=== PATIENT | male | born 1965 | race Caucasian/White ===

== ENCOUNTER 2017-01-01 13:28 | Emergency (ER) | payer OTHER ==
[2017-01-01 14:32] VITALS: BP 119/75
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
== END 2017-01-01 15:22 | disposition home or self-care (01) ==
LOC: UCEAST 13:28
DX: Z48.02 Encounter for removal of sutures (principal); F31.9 Bipolar disorder, unspecified; F17.210 Nicotine dependence, cigarettes, uncomplicated; F17.220 Nicotine dependence, chewing tobacco, uncomplicated
CPT/HCPCS: 99211; G0463

== ENCOUNTER 2017-01-12 19:37 | Emergency (ER) | payer OTHER ==
[2017-01-12 20:32] LABS: Hematocrit 40 % (42-52); Hemoglobin 13.3 g/dl (14.0-18.0); Mean Corpuscular HGB Conc 33 g/dl (31-36); Mean Corpuscular Hemoglobin 30 pg (27-31); Mean Corpuscular Volume 91 fL (80-94); Mean Platelet Volume 9 um3 (7.4-10.4); Red Blood Count 4.41 10^6/ul (4.0-5.4); Red Cell Distribution Width 14 % (10.5-15); White Blood Count 6.5 10^3/ul (3.5-10.8)
--- NOTE | 2017-01-12 20:34 | RAD ---
HISTORY: Fall COMPARISONS: March 30, 2006 VIEWS:1: Single frontal portable view of the chest at 8:25 PM FINDINGS: LINES AND TUBES: None. CARDIOMEDIASTINAL SILHOUETTE: The cardiomediastinal silhouette is normal for portable technique. PLEURA: The costophrenic angles are sharp. No pleural abnormalities are noted. LUNG PARENCHYMA: The lungs are clear. ABDOMEN: The upper abdomen is clear. There is no subphrenic gas. BONES AND SOFT TISSUES: No bone or soft tissue abnormalities are noted. IMPRESSION: NO ACTIVE CARDIOPULMONARY DISEASE.
--- NOTE | 2017-01-12 20:49 | RAD ---
HISTORY: Fall, intoxication COMPARISONS: April 01, 2016 TECHNIQUE: Multiple contiguous axial CT scans were obtained of the head without intravenous contrast. FINDINGS: HEMORRHAGE/INFARCT: There is no hemorrhage or acute infarct. MASSES/SHIFT: There is no mass or shift. EXTRA-AXIAL SPACES: There are no extra-axial fluid collections. SULCI AND VENTRICLES: The sulci and ventricles are normal in size and position for the patient's stated age. CEREBRUM: There are no focal parenchymal abnormalities. BRAINSTEM: There are no focal parenchymal abnormalities. CEREBELLUM: There are no focal parenchymal abnormalities. VESSELS: The vessels are grossly normal. PARANASAL SINUSES: The paranasal sinuses are clear. ORBITS: The orbits are unremarkable. BONES AND SOFT TISSUE: No bone or soft tissue abnormalities are noted. OTHER: None IMPRESSION: NO ACUTE INTRACRANIAL PATHOLOGY.
--- NOTE | 2017-01-12 20:49 | RAD ---
HISTORY: Fall, intoxication COMPARISONS: April 01, 2016 TECHNIQUE: Multiple contiguous axial CT scans were obtained of the cervical spine without intravenous contrast, with coronal and sagittal multiplanar reformations. FINDINGS: BRAIN: The visualized brain is unremarkable CENTRAL CANAL: Evaluation of the central canal is limited on CT technique; however, there is no obvious canalicular mass or epidural hemorrhage. ALIGNMENT: There is straightening of the cervical lordosis VERTEBRAL BODIES: There is mild anterolateral marginal osteophyte formation. There is no displaced fracture. JOINTS: There is mild osteoarthritis of the vertebral and facet joints. 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 MUSCULATURE: Unremarkable INTERVERTEBRAL DISCS: There is diffuse loss of intervertebral disc height. AXIAL IMAGES: C2-C3: There is no osseous neural foraminal narrowing or central canal stenosis. C3-C4: There is no osseous neural foraminal narrowing or central canal stenosis. C4-C5: There is no osseous neural foraminal narrowing or central canal stenosis. C5-C6: There is no osseous neural foraminal narrowing or central canal stenosis. C6-C7: There is no osseous neural foraminal narrowing or central canal stenosis. C7-T1: There is no osseous neural foraminal narrowing or central canal stenosis. SOFT TISSUES: The visualized soft tissues of the neck are unremarkable. The prevertebral fat stripe is preserved. OTHER: None. IMPRESSION: MILD DEGENERATIVE CHANGES. NO ACUTE OSSEOUS INJURY TO THE CERVICAL SPINE
[2017-01-12 21:08] LABS: Albumin 4.1 g/dL (3.2-5.2); BUN/Creatinine Ratio 15.9 (8-20); Calcium 8.9 mg/dL (8.6-10.3); EGFR African American 127.4 (>60); EGFR Non-African American 99.1 (>60); Globulin 2.5 g/dL (2-4); Potassium 3.3 mmol/L (3.5-5.0); Total Bilirubin 0.3 mg/dL (0.2-1.0); Total Protein 6.6 g/dL (6.4-8.9)
[2017-01-13 08:44] VITALS: BP 99/61
--- NOTE | 2017-01-13 09:23 | RAD ---
INDICATION: Right thumb injury. TECHNIQUE: 3 views of the right thumb were obtained. FINDINGS: There is mild diffuse soft tissue swelling. The bones are in normal alignment. No fracture is seen. Joint spaces appear maintained. IMPRESSION: SOFT TISSUE SWELLING, NO FRACTURE IS SEEN.
--- NOTE | 2017-01-17 22:43 | ED ---
Chris Chaudhry Erika, scribed for Karl Roberts MD on 01/12/17 at 2024 . Substance Abuse/Use - HPI Summary HPI Summary: Patient is a 51-year-old male presenting to the ED with a CC of alcohol intoxication. As we enter the room, patient states "I thought I was home." When asked about facial laceration, pt states "I don't know what happened." Patient admits to drinking gin tonight, and states the amount "depends" on the day. He denies thoughts of hurting himself. Patient denies any pain. Pt reports he lives in [place]. LEVEL 5 CAVEAT - AMS. - History Of Current Complaint Chief Complaint: EDSubstanceAbuse Stated Complaint: FALL/ETOH Time Seen by Provider: 01/12/17 19:41 Hx Obtained From: Patient Ingestion History: Type/Name Of Drug - EtOH Severity Currently: Moderate Character: Stuporous - Allergies/Home Medications Allergies/Adverse Reactions: Allergies Allergy/AdvReac Type Severity Reaction Status Date / Time Hydroxyzine [From Atarax] Allergy Agitation Verified 08/15/16 11:16 PMH/Surg Hx/FS Hx/Imm Hx Endocrine/Hematology History: Denies: Hx Diabetes, Hx Thyroid Disease Cardiovascular History: Denies: Hx Congestive Heart Failure, Hx Hypertension, Hx Pacemaker/ICD, Other Cardiovascular Problems/Disorders Respiratory History: Denies: Hx Asthma, Hx Chronic Obstructive Pulmonary Disease (COPD), Hx Pulmonary Embolism, Other Respiratory Problems/Disorders GI History: Denies: Hx Ulcer Sensory History: Denies: Hx Hearing Aid Psychiatric History: Reports: Hx Bipolar Disorder - THIS MAY NOT BE ACTUAL DX BUT PT ON MOOD STABILIZERS Denies: Hx Panic Disorder Infectious Disease History: Unable to Obtain/Confirm Infectious Disease History: Denies: Hx Clostridium Difficile, Hx Hepatitis, Hx Human Immunodeficiency Virus (HIV), Hx of Known/Suspected MRSA, Hx Shingles, Hx Tuberculosis, Hx Known/ Suspected VRE, Hx Known/Suspected VRSA, History Other Infectious Disease, Traveled Outside the [place] in Last 30 Days - Family History Known Family History: Positive: Hypertension Negative: Blood Disorder - Social History Alcohol Use: Occasionally Alcohol Amount: drinks "in excess every other day" Substance Use Type: Reports: None Substance Use Comment - Amount & Last Used: prior cocaine use Hx Tobacco Use: No Smoking Status (MU): Current Some Day Smoker Type: Smokeless Tobacco Amount Used/How Often: 1 can weekly. 10 cigarettes weekly Have You Smoked in the Last Year: No Review of Systems - ROS Summary Review of Systems Summary: LEVEL 5 CAVEAT - AMS - INTOXICATED Negative: Arthralgia, Myalgia Skin: Other - laceration to face Neurological: Other - intoxicated All Other Systems Reviewed And Are Negative: No Physical Exam - Summary Physical Exam Summary: Constitutional: Well-developed, Well-nourished, Alert, Cooperative Skin: Warm, Dry. 0.5 cm laceration over the right supraorbital ridge. HENT: Normocephalic; No Racoons eyes; No battles sign; No abrasion; No contusion ; No hemotympanum; No maxilla facial tenderness or instability; Dentition are smooth; No dental trauma; No trismus Eyes: EOMI, PERRL Neck: Trachea is midline. No stridor; No JVD; No step off; No posterior cervical spine tenderness Cardio: Rhythm regular, rate normal Heart sounds normal; Intact distal pulses; The pedal pulses are 2+ and symmetric. Radial pulses are 2+ and symmetric. Pulmonary/Chest wall: Effort normal; Breath sounds normal; Equal chest rise; No flail segment; No rib tenderness; No sternal tenderness Abd: Soft, Appearance normal. No distension; No tenderness; No palpable pulsatile mass; No Cullens sign; No Sharma-Turners sign Musculoskeletal: Full ROM and no tenderness at hips, ankles, shoulders, elbows and knees; No joint swelling; No vertebral body tenderness; No paraspinal tenderness; No step off or deformity of the spine; Pelvis is stable to lateral compression and rock Neuro: Speech is slurred. Triage Information Reviewed: Yes Vital Signs On Initial Exam: Initial Vitals Temp Pulse Resp BP Pulse Ox 98.1 F 67 14 98/52 94 01/12/17 19:47 01/12/17 19:47 01/12/17 19:47 01/12/17 19:47 01/12/17 19:47 Vital Signs Reviewed: Yes Completion Of Physical Exam Limited Due To: Altered Mental Status - Intoxicated , Level 5 - [place] Coma Scale Coma Scale Total: 14 Diagnostics - Vital Signs Vital Signs Temp Pulse Resp BP Pulse Ox 01/12/17 19:52 69 95 01/12/17 19:50 98/52 01/12/17 19:47 98.1 F 67 14 98/52 94 - Laboratory Result Diagrams: 01/12/17 20:25 01/12/17 20:25 Lab Statement: Any lab studies that have been ordered have been reviewed, and results considered in the medical decision making process. - Radiology CXR Radiology Interpretation Completed By: Radiologist - IMPRESSION: NO ACTIVE CARDIOPULMONARY DISEASE. R thumb XR Radiology Interpretation Completed By: ED Physician - No obvious fracture - CT CT C Spine CT Interpretation Completed By: Radiologist - IMPRESSION: MILD DEGENERATIVE CHANGES. NO ACUTE OSSEOUS INJURY TO THE CERVICAL SPINE Brain CT CT Interpretation Completed By: Radiologist - IMPRESSION: NO ACUTE INTRACRANIAL PATHOLOGY. Re-Evaluation - Re-Evaluation First Eval Re-Evaluation Time: 06:25 Comment: Patient's right thumb is swollen and tender over the interphalangeal joint. will XR Course/Dx - Course Assessment/Plan: Will put in a finger splint. - Diagnoses Provider Diagnoses: Alcohol intoxication, Fall, Thumb swelling, Eyebrow laceration Discharge - Discharge Plan Condition: Stable Disposition: HOME Patient Education Materials: Alcohol Intoxication (ED), Laceration (ED) Referrals: Jeffrey Sargent MD [Primary Care Provider] - Margoth Aguila MD [Medical Doctor] - 3 Days (3-5 days) Additional Instructions: RETURN TO THE EMERGENCY DEPARTMENT FOR CHANGING OR WORSENING SYMPTOMS The documentation as recorded by the Chris harris Erika accurately reflects the service I personally performed and the decisions made by , Karl Roberts MD.
== END 2017-01-13 08:29 | disposition home or self-care (01) ==
LOC: ED 19:37
DX: F10.129 Alcohol abuse with intoxication, unspecified (principal); R60.0 Localized edema; S01.119A Laceration without foreign body of unspecified eyelid and periocular area, initial encounter; W19.XXXA Unspecified fall, initial encounter; Y93.9 Activity, unspecified; Y92.9 Unspecified place or not applicable; Y99.9 Unspecified external cause status
CPT/HCPCS: 36415; 70450; 71010; 72125; 80053; 80320; 85025; 99284; G0480

== ENCOUNTER 2017-01-18 23:11 | Emergency (ER) | payer OTHER ==
[2017-01-18] MEDS ORDERED: Ketorolac INJ* 60 MG/2 ML VIAL IM ONE (23:42)
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
[2017-01-19 06:06] VITALS: BP 105/66
== END 2017-01-19 06:09 | disposition home or self-care (01) ==
LOC: ED 23:11
DX: M54.5 Low back pain (principal); F10.129 Alcohol abuse with intoxication, unspecified; Z72.0 Tobacco use
CPT/HCPCS: 36415; 80320; 96372; 99283; G0480; J1885

== ENCOUNTER 2017-01-28 20:02 | Emergency (ER) | payer OTHER ==
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
[2017-01-28 22:21] VITALS: BP 128/53
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
[2017-01-28] MEDS ORDERED: Acetaminophen TAB* 325 MG PO ONE (23:44)
--- NOTE | 2017-01-29 07:55 | RAD ---
INDICATION: Right elbow laceration. TECHNIQUE: 4 views of the right elbow were obtained. FINDINGS: There is focal soft tissue swelling and air in the soft tissues posterior to the olecranon process of the ulna consistent with the patient's history. No fracture or radiopaque foreign body is seen. There is overlying bandage material limiting the study slightly. IMPRESSION: SOFT TISSUE INJURY, NO FRACTURE IS SEEN.
== END 2017-01-29 02:26 | disposition home or self-care (01) ==
LOC: ED 20:02
DX: S01.81XA Laceration without foreign body of other part of head, initial encounter (principal); F10.129 Alcohol abuse with intoxication, unspecified; W22.8XXA Striking against or struck by other objects, initial encounter; Y93.9 Activity, unspecified; Y92.9 Unspecified place or not applicable; Z72.0 Tobacco use
CPT/HCPCS: 12011; 70450; 99282; A9270-GY

== ENCOUNTER 2017-03-15 12:19 | Emergency (ER) | payer OTHER ==
[2017-03-15] MEDS ORDERED: Ibuprofen TAB* 600 MG PO ONE (14:00)
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
--- NOTE | 2017-03-15 14:46 | RAD ---
HISTORY: Left leg pain, trauma COMPARISONS: None VIEWS: 3, Frontal and lateral views of the left foreleg FINDINGS: BONE DENSITY: Normal. BONES: There is no displaced fracture. JOINTS: There is no arthropathy. ALIGNMENT: There is no dislocation. SOFT TISSUES: Unremarkable. OTHER FINDINGS: None. IMPRESSION: NO ACUTE OSSEOUS INJURY. IF SYMPTOMS PERSIST, RECOMMEND REPEAT IMAGING.
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
[2017-03-15 16:19] VITALS: BP 136/83
== END 2017-03-15 15:45 | disposition home or self-care (01) ==
LOC: ED 12:19
DX: S80.02XA Contusion of left knee, initial encounter (principal); M25.562 Pain in left knee; M25.561 Pain in right knee; R21 Rash and other nonspecific skin eruption; Z72.0 Tobacco use; W22.8XXA Striking against or struck by other objects, initial encounter; Y93.9 Activity, unspecified; Y92.9 Unspecified place or not applicable
CPT/HCPCS: 99282; A9270-GY

== ENCOUNTER 2017-03-24 02:27 | Emergency (ER) | payer OTHER ==
[2017-03-24] MEDS ORDERED: LORazepam INJ* 2 MG/ML 1 ML VIAL IM ONE (02:46)
[2017-03-24] MEDS ORDERED: Haloperidol INJ IV/IM* 5 MG/ML AMP IM ONE (02:46)
[2017-03-24] MEDS ORDERED: LORazepam INJ* 2 MG/ML 1 ML VIAL ONE (02:47)
[2017-03-24] MEDS ORDERED: Haloperidol INJ IV/IM* 5 MG/ML AMP ONE (02:48)
[2017-03-24 02:56] LABS: Hematocrit 46 % (42-52); Hemoglobin 15.1 g/dl (14.0-18.0); Mean Corpuscular HGB Conc 33 g/dl (31-36); Mean Corpuscular Hemoglobin 30 pg (27-31); Mean Corpuscular Volume 91 fL (80-94); Mean Platelet Volume 9 um3 (7.4-10.4); Red Cell Distribution Width 14 % (10.5-15); White Blood Count 6.5 10^3/ul (3.5-10.8)
[2017-03-24 03:10] LABS: ALT 15 U/L (7-52); AST 22 U/L (13-39); Albumin 4.3 g/dL (3.2-5.2); Alkaline Phosphatase 67 U/L (34-104); Anion Gap 9 mmol/L (2-11); BUN/Creatinine Ratio 11.4 (8-20); Blood Urea Nitrogen 14 mg/dL (6-24); CO2 Carbon Dioxide 24 mmol/L (22-32); Chloride 108 mmol/L (101-111); EGFR African American 79.8 (>60); Glucose 170 mg/dL (70-100); Potassium 3.8 mmol/L (3.5-5.0); Sodium 141 mmol/L (133-145); Total Protein 7.3 g/dL (6.4-8.9)
[2017-03-24 03:27] LABS: Acetaminophen < 15 mcg/mL; Alcohol 345 mg/dL (<10); Salicylate < 2.50 mg/dL (<30)
[2017-03-24 03:36] LABS: TSH (Thyroid Stimulating Horm) 1.32 mcIU/mL (0.34-5.60)
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
[2017-03-24 16:52] LABS: Urine Bacteria Absent (Absent); Urine Bilirubin Negative (Negative); Urine Glucose Negative (Negative); Urine Nitrite Negative (Negative)
[2017-03-24 17:14] LABS: Benzodiazepine Urine Screen None Detected (None Detect)
[2017-03-24 18:55] VITALS: BP 133/74
--- NOTE | 2017-03-25 04:40 | ED ---
Lashonda Chaudhry Rebecca, scribed for Dave Huang MD on 03/24/17 at 2017 . Progress - Progress Note Progress Note: Pt was signed out. Mental health evaluation done by Dr. López, psychiatrist, who believes that the pt is safe to go home and is currently stable. Pt will be D/C to home with Dx of substance abuse and acute alcohol intoxication. - Consult/PCP Time Called: 19:45 Course/Dx - Diagnoses Provider Diagnoses: Acute alcohol intoxication, Substance abuse The documentation as recorded by the Lashonda harris Rebecca accurately reflects the service I personally performed and the decisions made by Reina carlton Drew, MD.
== END 2017-03-24 20:25 ==
LOC: ED 02:27
DX: F10.129 Alcohol abuse with intoxication, unspecified (principal); F19.10 Other psychoactive substance abuse, uncomplicated
CPT/HCPCS: 36415; 80053; 80307; 80320; 80329; 81003; 81015; 84443; 85025; 96374; 96375; 99283; G0480; J1630; J2060

== ENCOUNTER 2017-05-17 12:33 | Emergency (ER) | payer OTHER ==
[2017-05-17 12:40] VITALS: BP 127/83
[2017-05-17] MEDS ORDERED: Lidocaine 1% MPF* 2 ML VIAL INJ ONE (12:56)
[2017-05-17] MEDS ORDERED: Lidocaine 1% MPF* 2 ML VIAL ONE (12:58)
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
[2017-05-17] MEDS ORDERED: HYDROcodone/ACETAMIN 5-325 MG* 1 TAB PO ONE (13:12)
[2017-05-17] MEDS ORDERED: Ibuprofen TAB* 600 MG PO ONE (13:12)
--- NOTE | 2017-05-17 21:05 | UC ---
Progress - Progress Note Progress Note: Lab result showed MRSA in wound culture. Bactrim called into pt pharmacy, please call and inform him of this so he can start the prescription as soon as possible.
== END 2017-05-17 13:35 | disposition home or self-care (01) ==
LOC: UCEAST 12:33
DX: L02.213 Cutaneous abscess of chest wall (principal); L03.313 Cellulitis of chest wall; F17.210 Nicotine dependence, cigarettes, uncomplicated
CPT/HCPCS: 87070; 87077; 87186; 87205; 87640; 87641; 99212; A9270-GY; G0463

== ENCOUNTER 2017-06-11 21:07 | Emergency (ER) | payer OTHER ==
[2017-06-11 22:03] LABS: Hematocrit 45 % (42-52); Hemoglobin 15.2 g/dl (14.0-18.0); Mean Corpuscular HGB Conc 34 g/dl (31-36); Mean Corpuscular Hemoglobin 31 pg (27-31); Mean Corpuscular Volume 92 fL (80-94); Mean Platelet Volume 8 um3 (7.4-10.4); Red Blood Count 4.93 10^6/ul (4.0-5.4); Red Cell Distribution Width 13 % (10.5-15); White Blood Count 4.9 10^3/ul (3.5-10.8)
[2017-06-11 22:19] LABS: Urine Bilirubin Negative (Negative); Urine Glucose Negative (Negative); Urine Nitrite Negative (Negative)
[2017-06-11 22:20] LABS: ALT 14 U/L (7-52); AST 21 U/L (13-39); Albumin 4.6 g/dL (3.2-5.2); Alkaline Phosphatase 86 U/L (34-104); Anion Gap 3 mmol/L (2-11); Blood Urea Nitrogen 9 mg/dL (6-24); CO2 Carbon Dioxide 31 mmol/L (22-32); Calcium 9.3 mg/dL (8.6-10.3); Chloride 107 mmol/L (101-111); EGFR African American 114.4 (>60); Globulin 3.4 g/dL (2-4); Glucose 96 mg/dL (70-100); Potassium 3.9 mmol/L (3.5-5.0); Sodium 141 mmol/L (133-145)
--- NOTE | 2017-06-11 22:20 | RAD ---
Indication: Right-sided chest pain. 2 views of the chest demonstrates no mediastinal shift. Heart is of normal size and configuration. Lungs are clear. When compared to January 12, 2017 no significant change is noted. IMPRESSION: No active cardiopulmonary disease is noted.
[2017-06-11 22:31] LABS: Acetaminophen < 15 mcg/mL; Alcohol 358 mg/dL (<10); Salicylate < 2.50 mg/dL (<30)
[2017-06-11 22:32] LABS: Benzodiazepine Urine Screen None Detected (None Detect)
[2017-06-11 22:41] LABS: TSH (Thyroid Stimulating Horm) 2.95 mcIU/mL (0.34-5.60)
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
[2017-06-12 06:18] VITALS: BP 126/71
== END 2017-06-12 06:17 | disposition home or self-care (01) ==
LOC: ED 21:07
DX: F10.129 Alcohol abuse with intoxication, unspecified (principal); F17.210 Nicotine dependence, cigarettes, uncomplicated; R07.81 Pleurodynia
CPT/HCPCS: 36415; 71020; 80053; 80307; 80320; 80329; 81003; 84443; 84484; 85025; 99284; G0480

== ENCOUNTER 2017-06-13 18:03 | Inpatient (IN) | payer MEDICAID, OTHER ==
[2017-06-13 19:02] LABS: Urine Bilirubin Negative (Negative); Urine Glucose Negative (Negative); Urine Nitrite Negative (Negative)
[2017-06-13 19:18] LABS: Hematocrit 43 % (42-52); Hemoglobin 14.4 g/dl (14.0-18.0); Mean Corpuscular HGB Conc 34 g/dl (31-36); Mean Corpuscular Hemoglobin 31 pg (27-31); Mean Corpuscular Volume 91 fL (80-94); Mean Platelet Volume 8 um3 (7.4-10.4); Red Blood Count 4.68 10^6/ul (4.0-5.4); Red Cell Distribution Width 14 % (10.5-15); White Blood Count 8.2 10^3/ul (3.5-10.8)
[2017-06-13 19:20] LABS: Benzodiazepine Urine Screen None Detected (None Detect)
[2017-06-13 19:33] LABS: ALT 11 U/L (7-52); AST 18 U/L (13-39); Albumin 4.3 g/dL (3.2-5.2); Alkaline Phosphatase 76 U/L (34-104); Anion Gap 8 mmol/L (2-11); Blood Urea Nitrogen 10 mg/dL (6-24); CO2 Carbon Dioxide 26 mmol/L (22-32); Calcium 9.4 mg/dL (8.6-10.3); Chloride 107 mmol/L (101-111); EGFR Non-African American 87.8 (>60); Globulin 3.2 g/dL (2-4); Glucose 98 mg/dL (70-100); Potassium 3.6 mmol/L (3.5-5.0); Sodium 141 mmol/L (133-145); Total Protein 7.5 g/dL (6.4-8.9)
[2017-06-13] MEDS ORDERED: diPHENhydraMINE IV* 50 MG/ML 1 ml VIAL (BENADRYL) IM ONE ×2 (19:44→21:34)
[2017-06-13] MEDS ORDERED: LORazepam INJ* 2 MG/ML 1 ML VIAL IM ONE ×2 (19:44→22:00)
[2017-06-13] MEDS ORDERED: Haloperidol INJ IV/IM* 5 MG/ML AMP IM ONE ×2 (19:44→21:33)
[2017-06-13 19:48] LABS: Acetaminophen < 15 mcg/mL; Alcohol 223 mg/dL (<10); Salicylate < 2.50 mg/dL (<30)
[2017-06-13 20:42] LABS: TSH (Thyroid Stimulating Horm) 1.94 mcIU/mL (0.34-5.60)
[2017-06-13] MEDS ORDERED: LORazepam INJ* 2 MG/ML 1 ML VIAL IV PUSH ONE (22:00)
--- NOTE | 2017-06-14 06:48 | ED ---
Lashonda Chaudhry Rebecca, scribed for Bhanu Cooper on 06/14/17 at 0644 . Progress - Progress Note Progress Note: Pt was signed out from Dr. Smith, pending disposition, awaiting MHE clearance and completion and EtOH metabolism. Course/Dx - Course Course Of Treatment: Pt required sedation 2x in the ED. He is medically cleared at 0643. Pt will be signed out, pending disposition, awaiting MHE completion. - Diagnoses Provider Diagnoses: Depression The documentation as recorded by the Lashonda harris Rebecca accurately reflects the service I personally performed and the decisions made by Allison carlton Emmanuel.
[2017-06-14] MEDS ORDERED: Al Hydrox/Mg Hydrox/Simet LIQ* 30 ML UDC PO PRN (09:15)
[2017-06-14] MEDS ORDERED: Nicotine GUM* 2 MG PO PRN (09:15)
[2017-06-14] MEDS: chlordiazePOXIDE CAP* 25 MG PO SCH ×3 (11:34→20:59)
[2017-06-14] MEDS: Sertraline* 50 MG TAB PO SCH (11:34)
[2017-06-14] MEDS ORDERED: Thiamine IV* 100 MG/ML 2 ML VIAL IM ONE (11:36)
[2017-06-14] MEDS: Folic Acid TAB* 1 MG PO SCH (12:12)
[2017-06-14] MEDS: Gabapentin CAP(*) 300 MG PO SCH ×2 (14:27→20:59)
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
[2017-06-15] MEDS: Vitamin THERAPEUTIC TAB PO SCH (07:47)
[2017-06-15] MEDS: Thiamine TAB* 100 MG TAB PO SCH (07:47)
[2017-06-15] MEDS: Folic Acid TAB* 1 MG PO SCH (07:47)
[2017-06-15] MEDS: chlordiazePOXIDE CAP* 25 MG PO SCH (07:47)
[2017-06-15] MEDS: Gabapentin CAP(*) 300 MG PO SCH ×3 (07:47→20:18)
[2017-06-15] MEDS: Sertraline* 50 MG TAB PO SCH (07:48)
--- NOTE | 2017-06-15 11:39 | PN ---
MHU: Group Therapy Note - Service Type Service Type: 60768 Group Psychotherapy - Cognitive Behavioral Group Therapy ( CBT):Patient was attentive and participatory in CBT programming this morning, and remained in good behavioral control. Patient expressed positive insights regarding relevant treatment interventions and goals.
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
[2017-06-15] MEDS: Nicotine Lozenge* 4 MG LOZENGE MT PRN ×2 (17:39→21:09)
[2017-06-15] MEDS ORDERED: chlordiazePOXIDE CAP* 25 MG PO SCH (21:00)
[2017-06-15] MEDS: Haloperidol TAB* 5 MG PO PRN (22:21)
[2017-06-15] MEDS: Ibuprofen TAB* 600 MG PO PRN (22:22)
[2017-06-16] MEDS: Nicotine Lozenge* 4 MG LOZENGE MT PRN ×3 (01:35→16:01)
[2017-06-16] MEDS: Gabapentin CAP(*) 300 MG PO SCH ×3 (08:27→20:59)
[2017-06-16] MEDS: Sertraline* 50 MG TAB PO SCH (08:28)
[2017-06-16] MEDS: Vitamin THERAPEUTIC TAB PO SCH (08:28)
[2017-06-16] MEDS: Thiamine TAB* 100 MG TAB PO SCH (08:28)
[2017-06-16] MEDS: Folic Acid TAB* 1 MG PO SCH (08:28)
[2017-06-16] MEDS ORDERED: chlordiazePOXIDE CAP* 25 MG PO ONE (09:00)
--- NOTE | 2017-06-16 16:27 | PN ---
<YefriHailey - Last Filed: 06/16/17 17:26> Subjective - Subjective Subjective: I woke up patient. He is pleasant, alert and oriented x3. Mood euthymic, affect full.Denies suicidal ideation or psychotic thoughts. He is hoping to go directly to rehab from here. Is relieved that someone is taking care of his dog. Reports he is getting others on the unit to play board games. Objective - Appearance Dysmorphic Features: No Hygiene: Normal Grooming: Fairly Well Kept - Behavior Psychomotor Activities: Normal Exhibits Abnormal Movement: No - Attitude and Relatedness Attitude and Relatedness: Cooperative Eye Contact: Good - Speech Quality: Unpressured Latencies: Normal Quantity: Appropriate - Mood Patient's Decription of Mood: "Good" - Affect Observed Affect: Good Affect Consistent with: Euthymia - Thought Process Patient's Thought Process: Coherent Thought Content: No Passive Wish, No Suicidal Planning, No Homicidal Ideation, No Paranoid Ideation - Sensorium Experiencing Hallucinations: No, Sensorium is Clear - Level of Consciousness Level of Consciousness: Alert Orientation: Yes Intact, Yes Orientated to Time, Yes Orientated to Place, Yes Orientated to Person - Impulse Control Impulse Control: Intact - Insight and Judgement Insight and Judgement: Good - Group Participation Particating in Group Activities: Yes - Medication Management Medication Management Adherence: Yes Assessment - Assessment Merits Inpatient Hospitalization: For Stabilization Inpatient DSM-IV Dx: I: alcohol use d/o; PTSD; tobacco use d/o. II: deferred. III: back pain. IV: stressors r/t legal involvement, financial strain and sequela of alcohol use. 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 Cooperative, participating in groups and leading others to play board games. Hopeful that he will go into rehab directly from here. Plan - Plan Treatment Plan: Name: EMMY AQUINO Birthdate: 1965 [id number] Medications: Current Medications Al Hydrox/Mg Hydrox/Simethicone (Maalox Plus*) 30 ml PO Q4H PRN PRN Reason: INDIGESTION Folic Acid (Folvite Tab*) 1 mg PO DAILY [facility] Last Admin: 06/16/17 08:28 Dose: 1 mg Gabapentin (Neurontin Cap(*)) 900 mg PO TID [facility] Last Admin: 06/16/17 15:19 Dose: 900 mg Haloperidol (Haldol Tab*) 5 mg PO Q6H PRN PRN Reason: AGITATION/ANXIETY/INSOMNIA Last Admin: 06/15/17 22:21 Dose: 5 mg Ibuprofen (Motrin Tab*) 600 mg PO Q6H PRN PRN Reason: PAIN Last Admin: 06/15/17 22:22 Dose: 600 mg Multivitamins (Theragran Tab*) 1 tab PO DAILY [facility] Last Admin: 06/16/17 08:28 Dose: 1 tab Nicotine (Nicotine Inhaler*) 10 mg INH Q2H PRN PRN Reason: CRAVING Nicotine Polacrilex (Nicotine Lozenge*) 4 mg MT Q2H PRN PRN Reason: CRAVINGS Last Admin: 06/16/17 16:01 Dose: 4 mg Sertraline HCl (Zoloft*) 100 mg PO DAILY [facility] Last Admin: 06/16/17 08:28 Dose: 100 mg Thiamine HCl (Vitamin B-1 Tab*) 200 mg PO DAILY [facility] Last Admin: 06/16/17 08:28 Dose: 200 mg - Discharge Plan Discharge Plan: Drug/Alcohol Rehab <Romulo Elias - Last Filed: 06/17/17 18:15> Subjective - Subjective Subjective: Reviewed this note written by student psychiatric nurse practitioner, Hailey Asif, and approved it after discussion with her. Plan - Plan Treatment Plan: Name: EMMY AQUINO Birthdate: 1965 [id number] Medications: Current Medications Al Hydrox/Mg Hydrox/Simethicone (Maalox Plus*) 30 ml PO Q4H PRN PRN Reason: INDIGESTION Folic Acid (Folvite Tab*) 1 mg PO DAILY [facility] Last Admin: 06/17/17 08:31 Dose: 1 mg Gabapentin (Neurontin Cap(*)) 900 mg PO TID [facility] Last Admin: 06/17/17 13:36 Dose: 900 mg Haloperidol (Haldol Tab*) 5 mg PO Q6H PRN PRN Reason: AGITATION/ANXIETY/INSOMNIA Last Admin: 06/17/17 16:48 Dose: 5 mg Ibuprofen (Motrin Tab*) 600 mg PO Q6H PRN PRN Reason: PAIN Last Admin: 06/16/17 22:14 Dose: 600 mg Multivitamins (Theragran Tab*) 1 tab PO DAILY [facility] Last Admin: 06/17/17 08:31 Dose: 1 tab Nicotine (Nicotine Inhaler*) 10 mg INH Q2H PRN PRN Reason: CRAVING Last Admin: 06/17/17 13:37 Dose: 10 mg Nicotine Polacrilex (Nicotine Lozenge*) 4 mg MT Q2H PRN PRN Reason: CRAVINGS Last Admin: 06/17/17 17:32 Dose: 4 mg Sertraline HCl (Zoloft*) 100 mg PO DAILY [facility] Last Admin: 06/17/17 08:31 Dose: 100 mg Thiamine HCl (Vitamin B-1 Tab*) 200 mg PO DAILY [facility] Last Admin: 06/17/17 08:32 Dose: 200 mg Trazodone HCl (Desyrel Tab*) 50 mg PO BEDTIME PRN PRN Reason: FOR COMPLAINTS OF INSOMNIA Last Admin: 06/17/17 00:00 Dose: 50 mg
--- NOTE | 2017-06-16 21:16 | PN ---
Progress Note - Progress Note Date of Service: 06/14/17 SOAP: Subjective: [] Objective: [] Assessment: [] Plan: []The patient was signed out to me by Dr. Cooper. He is admitted to the psych unit for depression.
[2017-06-16] MEDS: Ibuprofen TAB* 600 MG PO PRN (22:14)
--- NOTE | 2017-06-16 22:16 | ED ---
Lindsay Chaudhry Alfonso, scribed for Shailesh Smith MD on 06/13/17 at 1910 . Psychiatric Complaint - HPI Summary HPI Summary: This patient is a 51 year old M BIBA to [facility] with a chief complaint of hearing voices since two days ago. The patient rates the pain 0/10 in severity. Symptoms aggravated by nothing. Symptoms alleviated by nothing. Patient reports ETOH use, paranoia, and HI ("I was looking to kill someone - I was looking to fight"). Patient denies SI. Medications reviewed. Patient medically cleared for [facility] at 0115. - History Of Current Complaint Chief Complaint: EDMentalHealth Time Seen by Provider: 06/13/17 19:06 Hx Obtained From: Patient Onset/Duration: Sudden Onset, Lasting Days - 2, Still Present Timing: Constant Severity Initially: Moderate Severity Currently: Moderate Aggravating Factor(s): Nothing Alleviating Factor(s): Nothing Associated Signs And Symptoms: Positive: Hallucinating - Hearing voices Related History: Positive For: Prior Psychiatric Issues Has Homicidal: Reports: Thoughts - Allergies/Home Medications Allergies/Adverse Reactions: Allergies Allergy/AdvReac Type Severity Reaction Status Date / Time Hydroxyzine [From Atarax] AdvReac Agitation Verified 05/17/17 12:40 Home Medications: Home Medications Gabapentin 600 mg PO DAILY 06/14/17 [History Confirmed 06/14/17] Ibuprofen TAB* [Motrin TAB* 600 MG] 600 mg PO DAILY 06/14/17 [History Confirmed 06/14/17] PMH/Surg Hx/FS Hx/Imm Hx Endocrine/Hematology History: Denies: Hx Diabetes, Hx Thyroid Disease Cardiovascular History: Denies: Hx Congestive Heart Failure, Hx Hypertension, Hx Pacemaker/ICD, Other Cardiovascular Problems/Disorders Respiratory History: Denies: Hx Asthma, Hx Chronic Obstructive Pulmonary Disease (COPD), Hx Pulmonary Embolism, Other Respiratory Problems/Disorders GI History: Denies: Hx Ulcer Sensory History: Denies: Hx Hearing Aid Psychiatric History: Reports: Hx Post Traumatic Stress Disorder, Hx Bipolar Disorder - THIS MAY NOT BE ACTUAL DX BUT PT ON MOOD STABILIZERS, Hx Substance Abuse - ETOH Denies: Hx Eating Disorder, Hx Panic Disorder - Surgical History Surgery Procedure, Year, and Place: Throat, face reconstruction - Immunization History Date of Tetanus Vaccine: unk Date of Influenza Vaccine: unk Infectious Disease History: No Infectious Disease History: Denies: Hx Clostridium Difficile, Hx Hepatitis, Hx Human Immunodeficiency Virus (HIV), Hx of Known/Suspected MRSA, Hx Shingles, Hx Tuberculosis, Hx Known/ Suspected VRE, Hx Known/Suspected VRSA, History Other Infectious Disease, Traveled Outside the [place] in Last 30 Days - Family History Known Family History: Positive: Hypertension Negative: Blood Disorder - Social History Alcohol Use: Daily Alcohol Amount: drinks "in excess every other day" Hx Substance Use: Yes Substance Use Type: Reports: Cocaine Substance Use Comment - Amount & Last Used: cocaine use Hx Tobacco Use: No Smoking Status (MU): Heavy Every Day Tobacco Smoker Type: Cigarettes Amount Used/How Often: 1/2 ppd Length of Time of Smoking/Using Tobacco: since age 15 Have You Smoked in the Last Year: Yes Review of Systems Constitutional: Negative Positive: Other - hearing voices ETOH use, paranoia, and HI ("I was looking to kill someone - I was looking to fight"); negative SI. All Other Systems Reviewed And Are Negative: Yes Physical Exam Triage Information Reviewed: Yes Vital Signs On Initial Exam: Initial Vitals Temp Pulse Resp BP Pulse Ox 98.0 F 79 16 138/83 100 06/13/17 18:26 06/13/17 18:26 06/13/17 18:26 06/13/17 18:26 06/13/17 18:26 Vital Signs Reviewed: Yes Appearance: Positive: Well-Appearing, No Pain Distress Skin: Positive: Warm, Skin Color Reflects Adequate Perfusion, Dry Head/Face: Positive: Normal Head/Face Inspection Eyes: Positive: EOMI, PAULO ENT: Positive: Normal ENT inspection Neck: Positive: Supple, Nontender Respiratory/Lung Sounds: Positive: Clear to Auscultation, Breath Sounds Present Cardiovascular: Positive: RRR Abdomen Description: Positive: Nontender, Soft Bowel Sounds: Positive: Present Musculoskeletal: Positive: Normal, Strength/ROM Intact Neurological: Positive: Normal, Sensory/Motor Intact, Alert, Oriented to Person Place, Time Psychiatric: Positive: Affect/Mood Appropriate Diagnostics - Vital Signs Vital Signs Temp Pulse Resp BP Pulse Ox 06/13/17 18:26 98.0 F 79 16 138/83 100 - Laboratory Lab Results: Lab Results 06/13/17 Range/Units 18:45 Urine Color Colorless Urine Appearance Clear Urine pH 6.0 (5-9) Ur Specific [place] 1.001 L (1.010-1.030) Urine Protein Negative (Negative) Urine Ketones Negative (Negative) Urine Blood Negative (Negative) Urine Nitrate Negative (Negative) Urine Bilirubin Negative (Negative) Urine Urobilinogen Negative (Negative) Ur Leukocyte Esterase Negative (Negative) Urine Glucose Negative (Negative) Result Diagrams: 06/13/17 19:08 06/13/17 19:08 Lab Statement: Any lab studies that have been ordered have been reviewed, and results considered in the medical decision making process. Course/Dx - Differential Dx/Clinical Impression Provider Diagnosis: Depression Discharge - Discharge Plan Condition: Stable Disposition: PSY[facility]IATRIC FACILITY-[facility] The documentation as recorded by the Lindsay harris Alfonso accurately reflects the service I personally performed and the decisions made by , Shailesh Smith MD.
[2017-06-17] MEDS: Vitamin THERAPEUTIC TAB PO SCH (08:31)
[2017-06-17] MEDS: Sertraline* 50 MG TAB PO SCH (08:31)
[2017-06-17] MEDS: Folic Acid TAB* 1 MG PO SCH (08:31)
[2017-06-17] MEDS: Gabapentin CAP(*) 300 MG PO SCH ×3 (08:31→20:27)
[2017-06-17] MEDS: Thiamine TAB* 100 MG TAB PO SCH (08:32)
[2017-06-17] MEDS: Nicotine Lozenge* 4 MG LOZENGE MT PRN ×4 (11:46→20:29)
[2017-06-17] MEDS: Nicotine Inhaler* 10 MG AMP INH PRN ×2 (11:47→13:37)
[2017-06-17] MEDS ORDERED: Mouth Piece, Nicotine* 1 EACH CARTRIDGE ONE (11:48)
[2017-06-17] MEDS: Haloperidol TAB* 5 MG PO PRN (16:48)
[2017-06-17] MEDS: traZODone TAB* 50 MG TAB PO PRN ×2 (20:29)
[2017-06-18] MEDS: Nicotine Lozenge* 4 MG LOZENGE MT PRN ×5 (07:05→23:48)
[2017-06-18] MEDS: Folic Acid TAB* 1 MG PO SCH (10:56)
[2017-06-18] MEDS: Gabapentin CAP(*) 300 MG PO SCH ×3 (10:56→20:21)
[2017-06-18] MEDS: Sertraline* 50 MG TAB PO SCH (10:57)
[2017-06-18] MEDS: Vitamin THERAPEUTIC TAB PO SCH (10:57)
[2017-06-18] MEDS: Thiamine TAB* 100 MG TAB PO SCH (10:59)
--- NOTE | 2017-06-18 14:08 | PN ---
Subjective - Subjective Service Type: 78944 Hosp care 15 min low complexity Subjective: Patient calm, very polite. Denies SI. States he would like to go to rehab at [place], [place] or [facility], as they have [facility] programs. No complaints. Objective - Appearance Appearance: Well Developed/Nourished Dysmorphic Features: No Hygiene: Normal Grooming: Well Kept - Behavior Psychomotor Activities: Normal Exhibits Abnormal Movement: No - Attitude and Relatedness Attitude and Relatedness: Cooperative Eye Contact: Good - Speech Quality: Unpressured Latencies: Normal Quantity: Appropriate - Mood Patient's Decription of Mood: "Good" - Affect Observed Affect: Good Affect Consistent with: Euthymia - Thought Process Patient's Thought Process: Coherent Thought Content: No Passive Wish, No Suicidal Planning, No Homicidal Ideation, No Paranoid Ideation - Sensorium Experiencing Hallucinations: No, Sensorium is Clear Type of Hallucinations: Visual: No, Auditory: No, Command: No - Level of Consciousness Level of Consciousness: Alert Orientation: Yes Intact, Yes Orientated to Time, Yes Orientated to Place, Yes Orientated to Person - Impulse Control Impulse Control: Intact - Insight and Judgement Insight and Judgement: Good - Group Participation Particating in Group Activities: Yes - Medication Management Medication Management Adherence: Yes Assessment - Assessment Merits Inpatient Hospitalization: Consolidate Improvements, Pending Safe DC Plan Inpatient DSM-IV Dx: I: alcohol use d/o; PTSD; tobacco use d/o. II: deferred. III: back pain. IV: stressors r/t legal involvement, financial strain and sequela of alcohol use. V: 55 Clinical Impression: 51 y.o. white male with a history of alcohol dependence admitted for SI. Plan - Plan Treatment Plan: Name: EMMY AQUINO Birthdate: 1965 [id number] Patient awaits inpatient alcohol rehab. No evidence of withdrawal symptoms. Await placement. Medications: Current Medications Al Hydrox/Mg Hydrox/Simethicone (Maalox Plus*) 30 ml PO Q4H PRN PRN Reason: INDIGESTION Folic Acid (Folvite Tab*) 1 mg PO DAILY [facility] Last Admin: 06/18/17 10:56 Dose: 1 mg Gabapentin (Neurontin Cap(*)) 900 mg PO TID [facility] Last Admin: 06/18/17 10:56 Dose: 900 mg Haloperidol (Haldol Tab*) 5 mg PO Q6H PRN PRN Reason: AGITATION/ANXIETY/INSOMNIA Last Admin: 06/17/17 16:48 Dose: 5 mg Ibuprofen (Motrin Tab*) 600 mg PO Q6H PRN PRN Reason: PAIN Last Admin: 06/16/17 22:14 Dose: 600 mg Influenza Virus Vaccine (Fluarix *Quad* 201718*) 0.5 ml IM .ONCE ONE Stop: 06/30/17 09:01 Multivitamins (Theragran Tab*) 1 tab PO DAILY [facility] Last Admin: 06/18/17 10:57 Dose: 1 tab Nicotine (Nicotine Inhaler*) 10 mg INH Q2H PRN PRN Reason: CRAVING Last Admin: 06/17/17 13:37 Dose: 10 mg Nicotine Polacrilex (Nicotine Lozenge*) 4 mg MT Q2H PRN PRN Reason: CRAVINGS Last Admin: 06/18/17 12:31 Dose: 4 mg Sertraline HCl (Zoloft*) 100 mg PO DAILY [facility] Last Admin: 06/18/17 10:57 Dose: 100 mg Thiamine HCl (Vitamin B-1 Tab*) 200 mg PO DAILY [facility] Last Admin: 06/18/17 10:59 Dose: 200 mg Trazodone HCl (Desyrel Tab*) 50 mg PO BEDTIME PRN PRN Reason: FOR COMPLAINTS OF INSOMNIA Last Admin: 06/17/17 20:29 Dose: 50 mg - Discharge Plan Discharge Plan: Drug/Alcohol Rehab
[2017-06-18] MEDS ORDERED: Influenza VAC *QUAD* 2017-18* 0.5 ML SYRINGE IM ONE (16:30)
[2017-06-18] MEDS: Nicotine Inhaler* 10 MG AMP INH PRN (16:56)
[2017-06-18] MEDS: traZODone TAB* 50 MG TAB PO PRN (20:22)
[2017-06-18] MEDS: Ibuprofen TAB* 600 MG PO PRN (23:27)
[2017-06-19] MEDS: Nicotine Lozenge* 4 MG LOZENGE MT PRN ×5 (06:55→22:31)
[2017-06-19] MEDS: Gabapentin CAP(*) 300 MG PO SCH ×3 (10:05→19:57)
[2017-06-19] MEDS: Folic Acid TAB* 1 MG PO SCH (10:07)
[2017-06-19] MEDS: Vitamin THERAPEUTIC TAB PO SCH (10:08)
[2017-06-19] MEDS: Sertraline* 50 MG TAB PO SCH (10:08)
[2017-06-19] MEDS: Thiamine TAB* 100 MG TAB PO SCH (10:08)
--- NOTE | 2017-06-19 11:44 | PN ---
MHU: Group Therapy Note - Service Type Service Type: 67514 Group Psychotherapy - Cognitive Behavioral Group Therapy ( CBT):Patient was attentive and participatory in CBT programming this morning, and remained in good behavioral control. Patient expressed positive insights regarding relevant treatment interventions and goals.
[2017-06-19] MEDS ORDERED: traZODone TAB* 100 MG PO PRN (13:20)
--- NOTE | 2017-06-19 13:26 | PN ---
Subjective - Subjective Service Type: 72167 Hosp care 15 min low complexity Subjective: Patient reports improved mood and denies urges or cravings for alcohol. He is eager to be accepted to a [facility] inpatient facility. He reports improved sleep with the exception of waking with sciatic pain radiating from right gluteus. He denies SI/HI/. He is noted to be interactive and jovial with staff and peers. Objective - Appearance Appearance: Well Developed/Nourished Dysmorphic Features: No Hygiene: Normal Grooming: Well Kept - Behavior Psychomotor Activities: Normal Exhibits Abnormal Movement: No - Attitude and Relatedness Attitude and Relatedness: Cooperative Eye Contact: Good - Speech Quality: Unpressured Latencies: Normal Quantity: Appropriate - Mood Patient's Decription of Mood: "Great" - Affect Observed Affect: Good Affect Consistent with: Euthymia - Thought Process Patient's Thought Process: Coherent, Goal Directed Thought Content: No Passive Wish, No Suicidal Planning, No Homicidal Ideation, No Paranoid Ideation - Sensorium Experiencing Hallucinations: No, Sensorium is Clear Type of Hallucinations: Visual: No, Auditory: No, Command: No - Level of Consciousness Level of Consciousness: Alert Orientation: Yes Intact, Yes Orientated to Time, Yes Orientated to Place, Yes Orientated to Person - Impulse Control Impulse Control: Tenuous - Insight and Judgement Insight and Judgement: Good - Group Participation Particating in Group Activities: Yes - Medication Management Medication Management Adherence: Yes Assessment - Assessment Merits Inpatient Hospitalization: For Stabilization, For Ongoing Evaluation, For Discharge Planning Inpatient DSM-IV Dx: I: alcohol use d/o; PTSD; tobacco use d/o. II: deferred. III: back pain. IV: stressors r/t legal involvement, financial strain and sequela of alcohol use. V: 55 Clinical Impression: Patient is a 51yo male with significant trauma and alcohol abuse history. He is awaiting inpatient substance use facility acceptance. Plan - Plan Treatment Plan: Name: EMMY AQUINO Birthdate: 1965 [id number] Increase trazodone for sleep. May have one time dose of flexeril for sciatic pain. Continue intensive acute inpatient psychiatric treatment. Discharge planning to include outpatient providers and referrals to substance use treatment. Continued Medication Management: Different Medication Medications: Current Medications Al Hydrox/Mg Hydrox/Simethicone (Maalox Plus*) 30 ml PO Q4H PRN PRN Reason: INDIGESTION Cyclobenzaprine HCl (Flexeril Tab*) 10 mg PO ONCE ONE Stop: 06/19/17 21:01 Folic Acid (Folvite Tab*) 1 mg PO DAILY [facility] Last Admin: 06/19/17 10:07 Dose: 1 mg Gabapentin (Neurontin Cap(*)) 900 mg PO TID [facility] Last Admin: 06/19/17 10:05 Dose: 900 mg Ibuprofen (Motrin Tab*) 600 mg PO Q6H PRN PRN Reason: PAIN Last Admin: 06/18/17 23:27 Dose: 600 mg Multivitamins (Theragran Tab*) 1 tab PO DAILY [facility] Last Admin: 06/19/17 10:08 Dose: 1 tab Nicotine (Nicotine Inhaler*) 10 mg INH Q2H PRN PRN Reason: CRAVING Last Admin: 06/18/17 16:56 Dose: 10 mg Nicotine Polacrilex (Nicotine Lozenge*) 4 mg MT Q2H PRN PRN Reason: CRAVINGS Last Admin: 06/19/17 12:27 Dose: 4 mg Sertraline HCl (Zoloft*) 100 mg PO DAILY [facility] Last Admin: 06/19/17 10:08 Dose: 100 mg Thiamine HCl (Vitamin B-1 Tab*) 200 mg PO DAILY [facility] Last Admin: 06/19/17 10:08 Dose: 200 mg Trazodone HCl (Desyrel Tab*) 100 mg PO BEDTIME PRN PRN Reason: FOR COMPLAINTS OF INSOMNIA - Discharge Plan Discharge Plan: Drug/Alcohol Rehab
[2017-06-19] MEDS ORDERED: Cyclobenzaprine TAB* 10 MG PO ONE (21:00)
[2017-06-20] MEDS: Ibuprofen TAB* 600 MG PO PRN (05:26)
[2017-06-20] MEDS: Nicotine Lozenge* 4 MG LOZENGE MT PRN ×4 (05:26→22:59)
[2017-06-20] MEDS: Vitamin THERAPEUTIC TAB PO SCH (08:42)
[2017-06-20] MEDS: Sertraline* 50 MG TAB PO SCH (08:42)
[2017-06-20] MEDS: Gabapentin CAP(*) 300 MG PO SCH ×3 (08:42→21:16)
[2017-06-20] MEDS: Folic Acid TAB* 1 MG PO SCH (08:42)
[2017-06-20] MEDS: ATOMOXETINE 18 MG PO SCH (08:43)
[2017-06-20] MEDS: CMCS: Atomoxetine (NF) 40 MG CAP PO SCH (08:43)
[2017-06-20] MEDS: Thiamine TAB* 100 MG TAB PO SCH (08:47)
[2017-06-20] MEDS: Nicotine Inhaler* 10 MG AMP INH PRN ×2 (10:33→22:59)
[2017-06-20] MEDS ORDERED: Mouth Piece, Nicotine* 1 EACH CARTRIDGE ONE (10:33)
--- NOTE | 2017-06-20 13:58 | PN ---
MHU: Group Therapy Note - Service Type Service Type: [id number] Group Psychotherapy - Cognitive Behavioral Group Therapy ( CBT):Patient was attentive and participatory in CBT programming this morning, and remained in good behavioral control. Patient expressed positive insights regarding relevant treatment interventions and goals.
--- NOTE | 2017-06-20 15:10 | PN ---
Subjective - Subjective Service Type: 77598 Hosp care 15 min low complexity Subjective: Patient reports resolved sciatic pain. He reports restless sleep and does not think trazodone is effective. He states he is more calm and less hyperverbal, intrusive but has noticed he is more vulnerable from noon to 6pm. He states this is a long-standing pattern for him and that he typically used alcohol to quell feeling "jacked up" in the afternoons. Reports onset of herpes blister on side of nose and that he typically uses zofirax topical. He also requests mouth spray for xerostomia. He continues to assert desire for bed to bed transfer to substance use tx facility. Objective - Appearance Appearance: Well Developed/Nourished Dysmorphic Features: No Hygiene: Normal Grooming: Well Kept - Behavior Psychomotor Activities: Abnormal-Increased - hyperactivity Exhibits Abnormal Movement: Yes - Attitude and Relatedness Attitude and Relatedness: Cooperative Eye Contact: Good - Speech Quality: Unpressured Latencies: Normal Quantity: Appropriate - Mood Patient's Decription of Mood: "Great" - Affect Observed Affect: Good Affect Consistent with: Euthymia - Thought Process Patient's Thought Process: Coherent, Goal Directed Thought Content: No Passive Wish, No Suicidal Planning, No Homicidal Ideation, No Paranoid Ideation - Sensorium Experiencing Hallucinations: No, Sensorium is Clear Type of Hallucinations: Visual: No, Auditory: No, Command: No - Level of Consciousness Level of Consciousness: Alert Orientation: No Intact, No Orientated to Time, No Orientated to Place, No Orientated to Person - Impulse Control Impulse Control: Poor - Insight and Judgement Insight and Judgement: Good - Group Participation Particating in Group Activities: Yes - Medication Management Medication Management Adherence: Yes Assessment - Assessment Merits Inpatient Hospitalization: For Stabilization, Consolidate Improvements, For Discharge Planning Inpatient DSM-IV Dx: I: alcohol use d/o; PTSD; tobacco use d/o. II: deferred. III: back pain. IV: stressors r/t legal involvement, financial strain and sequela of alcohol use. V: 55 Clinical Impression: Patient is a 51yo male with significant trauma and alcohol abuse history. He is awaiting inpatient substance use facility acceptance. Plan - Plan Treatment Plan: Name: EMMY AQUINO Birthdate: 1965 [id number] Increase trazodone for sleep. May have one time dose of flexeril for sciatic pain. Continue intensive acute inpatient psychiatric treatment. Discharge planning to include outpatient providers and referrals to substance use treatment. Continued Medication Management: Different Medication Medications: Current Medications Al Hydrox/Mg Hydrox/Simethicone (Maalox Plus*) 30 ml PO Q4H PRN PRN Reason: INDIGESTION Atomoxetine HCl (Strattera (Nf)) 18 mg PO DAILY [facility] Last Admin: 06/20/17 08:43 Dose: 18 mg Atomoxetine HCl (Strattera (Nf)) 40 mg PO DAILY [facility] Last Admin: 06/20/17 08:43 Dose: 40 mg Docosanol (Abreva 10%*) 1 applic TOPICAL FIVE TIMES DAILY [facility] Folic Acid (Folvite Tab*) 1 mg PO DAILY [facility] Last Admin: 06/20/17 08:42 Dose: 1 mg Gabapentin (Neurontin Cap(*)) 900 mg PO TID [facility] Last Admin: 06/20/17 14:37 Dose: 900 mg Ibuprofen (Motrin Tab*) 600 mg PO Q6H PRN PRN Reason: PAIN Last Admin: 06/20/17 05:26 Dose: 600 mg Mirtazapine (Remeron Tab*) 15 mg PO BEDTIME [facility] Multi-Ingredient Mouthwash/Gargle (Biotene Dry Mouth Oral Rinse(Nf)) 15 ml MT FIVE TIMES DAILY PRN PRN Reason: DRY MOUTH Multivitamins (Theragran Tab*) 1 tab PO DAILY [facility] Last Admin: 06/20/17 08:42 Dose: 1 tab Nicotine (Nicotine Inhaler*) 10 mg INH Q2H PRN PRN Reason: CRAVING Last Admin: 06/20/17 10:33 Dose: 10 mg Nicotine Polacrilex (Nicotine Lozenge*) 4 mg MT Q2H PRN PRN Reason: CRAVINGS Last Admin: 06/20/17 13:30 Dose: 4 mg Sertraline HCl (Zoloft*) 100 mg PO DAILY [facility] Last Admin: 06/20/17 08:42 Dose: 100 mg Thiamine HCl (Vitamin B-1 Tab*) 200 mg PO DAILY [facility] Last Admin: 06/20/17 08:47 Dose: 200 mg - Discharge Plan Discharge Plan: Drug/Alcohol Rehab
[2017-06-20] MEDS ORDERED: ATOMOXETINE 60 MG PO SCH (15:29)
[2017-06-20] MEDS ORDERED: Mirtazapine TAB* 15 MG PO SCH (21:00)
[2017-06-20] MEDS: CMC:Oral Rinse (Biotene)(NF) 237 ML or 473 ML ORAL RINSE BTL MT PRN (23:47)
[2017-06-20] MEDS: Docosanol 10%* CREAM 2 GM TUBE TOPICAL SCH (23:47)
[2017-06-21] MEDS: Ibuprofen TAB* 600 MG PO PRN (02:11)
[2017-06-21] MEDS: Nicotine Lozenge* 4 MG LOZENGE MT PRN ×5 (02:11→21:44)
[2017-06-21] MEDS: ATOMOXETINE 18 MG PO SCH (08:51)
[2017-06-21] MEDS: CMCS: Atomoxetine (NF) 40 MG CAP PO SCH (08:51)
[2017-06-21] MEDS: Gabapentin CAP(*) 300 MG PO SCH ×3 (08:51→20:41)
[2017-06-21] MEDS: Vitamin THERAPEUTIC TAB PO SCH (08:52)
[2017-06-21] MEDS: Thiamine TAB* 100 MG TAB PO SCH (08:52)
[2017-06-21] MEDS: Sertraline* 50 MG TAB PO SCH (08:52)
[2017-06-21] MEDS: Folic Acid TAB* 1 MG PO SCH (08:52)
[2017-06-21] MEDS: Docosanol 10%* CREAM 2 GM TUBE TOPICAL SCH ×6 (08:56→20:43)
[2017-06-21] MEDS: CMC:Oral Rinse (Biotene)(NF) 237 ML or 473 ML ORAL RINSE BTL MT PRN ×3 (11:16→18:19)
[2017-06-21] MEDS: Nicotine Inhaler* 10 MG AMP INH PRN (15:43)
--- NOTE | 2017-06-21 15:54 | PN ---
Subjective - Subjective Service Type: 08902 Hosp care 15 min low complexity Subjective: Patient reports feeling overstimulated with mirtazapine and did not sleep last night. He reports sciatic pain and is receptive to non-medication treatment suggestions. He reports relief from xerostomia with mouth rinse. He is notified of plan to transfer to [facility] tomorrow morning and asks about obtaining his clothing from friends/family in [place]. He is encouraged to call about having them brought to the hospital. Objective - Appearance Appearance: Well Developed/Nourished Dysmorphic Features: No Hygiene: Normal Grooming: Well Kept - Behavior Psychomotor Activities: Abnormal-Increased - hyperactive Exhibits Abnormal Movement: Yes - Attitude and Relatedness Attitude and Relatedness: Cooperative Eye Contact: Good - Speech Quality: Unpressured Latencies: Normal Quantity: Appropriate - Mood Patient's Decription of Mood: "hyper" - Affect Observed Affect: Euphoric Affect Consistent with: Euphoria - Thought Process Patient's Thought Process: Coherent, Goal Directed, Circumstantial - medications Thought Content: No Passive Wish, No Suicidal Planning, No Homicidal Ideation, No Paranoid Ideation - Sensorium Experiencing Hallucinations: No, Sensorium is Clear Type of Hallucinations: Visual: No, Auditory: No, Command: No - Level of Consciousness Level of Consciousness: Alert Orientation: Yes Intact, Yes Orientated to Time, Yes Orientated to Place, Yes Orientated to Person - Impulse Control Impulse Control: Tenuous - Insight and Judgement Insight and Judgement: Fair - Group Participation Particating in Group Activities: Yes - Medication Management Medication Management Adherence: Yes Assessment - Assessment Merits Inpatient Hospitalization: Consolidate Improvements, For Discharge Planning Inpatient DSM-IV Dx: I: alcohol use d/o; PTSD; tobacco use d/o. II: deferred. III: back pain. IV: stressors r/t legal involvement, financial strain and sequela of alcohol use. V: 55 Clinical Impression: Patient is a 51yo male with significant trauma and alcohol abuse history. He has been accepted to [facility] in [place] and given a bed date of 06/22/17. Plan - Plan Treatment Plan: Name: EMMY AQUINO Birthdate: 1965 [id number] DC mirtazapine and trial quetiapine for mood stabilization and insomnia. Discharge via taxi to [facility] on morning of 06/22/17. Continued Medication Management: Different Medication Medications: Current Medications Al Hydrox/Mg Hydrox/Simethicone (Maalox Plus*) 30 ml PO Q4H PRN PRN Reason: INDIGESTION Atomoxetine HCl (Strattera (Nf)) 18 mg PO DAILY [facility] Last Admin: 06/21/17 08:51 Dose: 18 mg Atomoxetine HCl (Strattera (Nf)) 40 mg PO DAILY [facility] Last Admin: 06/21/17 08:51 Dose: 40 mg Docosanol (Abreva 10%*) 1 applic TOPICAL FIVE TIMES DAILY [facility] Last Admin: 06/21/17 14:44 Dose: Not Given Folic Acid (Folvite Tab*) 1 mg PO DAILY [facility] Last Admin: 06/21/17 08:52 Dose: 1 mg Gabapentin (Neurontin Cap(*)) 900 mg PO TID [facility] Last Admin: 06/21/17 14:42 Dose: 900 mg Ibuprofen (Motrin Tab*) 600 mg PO Q6H PRN PRN Reason: PAIN Last Admin: 06/21/17 02:11 Dose: 600 mg Multi-Ingredient Mouthwash/Gargle (Biotene Dry Mouth Oral Rinse(Nf)) 15 ml MT FIVE TIMES DAILY PRN PRN Reason: DRY MOUTH Last Admin: 06/21/17 15:41 Dose: 15 ml Multivitamins (Theragran Tab*) 1 tab PO DAILY [facility] Last Admin: 06/21/17 08:52 Dose: 1 tab Nicotine (Nicotine Inhaler*) 10 mg INH Q2H PRN PRN Reason: CRAVING Last Admin: 06/21/17 15:43 Dose: 10 mg Nicotine Polacrilex (Nicotine Lozenge*) 4 mg MT Q2H PRN PRN Reason: CRAVINGS Last Admin: 06/21/17 14:45 Dose: 4 mg Quetiapine Fumarate (Seroquel Tab*) 50 mg PO BEDTIME [facility] Sertraline HCl (Zoloft*) 100 mg PO DAILY [facility] Last Admin: 06/21/17 08:52 Dose: 100 mg Thiamine HCl (Vitamin B-1 Tab*) 200 mg PO DAILY [facility] Last Admin: 06/21/17 08:52 Dose: 200 mg - Discharge Plan Discharge Plan: Drug/Alcohol Rehab - [facility]
[2017-06-21] MEDS ORDERED: QUEtiapine TAB* 25 MG PO SCH (21:00)
[2017-06-22] MEDS: Nicotine Lozenge* 4 MG LOZENGE MT PRN ×2 (01:37→07:53)
[2017-06-22] MEDS: Nicotine Inhaler* 10 MG AMP INH PRN (01:37)
[2017-06-22] MEDS: Ibuprofen TAB* 600 MG PO PRN (01:38)
[2017-06-22] MEDS: Docosanol 10%* CREAM 2 GM TUBE TOPICAL SCH ×2 (06:00→10:10)
[2017-06-22] MEDS: Sertraline* 50 MG TAB PO SCH (07:54)
[2017-06-22] MEDS: Thiamine TAB* 100 MG TAB PO SCH (07:54)
[2017-06-22] MEDS: Folic Acid TAB* 1 MG PO SCH (07:54)
[2017-06-22] MEDS: Gabapentin CAP(*) 300 MG PO SCH (07:54)
[2017-06-22] MEDS: Vitamin THERAPEUTIC TAB PO SCH (07:55)
[2017-06-22] MEDS: CMCS: Atomoxetine (NF) 40 MG CAP PO SCH (07:58)
[2017-06-22 08:16] VITALS: BP 132/87
[2017-06-22 10:26] LABS: Benzodiazepine Urine Screen None Detected (None Detect)
--- NOTE | 2017-06-23 07:18 | DS ---
CC: [facility]; Jeffrey Sargent MD * DISCHARGE SUMMARY: DATE OF ADMISSION: 06/14/17 DATE OF DISCHARGE: 06/22/17 SUPERVISING PSYCHIATRIST: Sekou Olivares MD *(dictated by TOMER Triana) DISCHARGE DIAGNOSES: Benton I: Alcohol use disorder, cocaine use disorder; PTSD- ADHD combined presentation, tobacco use disorder. Benton II: Consider antisocial traits. Benton III: Herpes simplex 2, sciatic pain. Benton IV: Stressors related to substance use, homelessness, CPS involvement, family court involvement, and probation. Benton V: 50. CONDITION AT THE TIME OF DISCHARGE: Improved in regards to substance use. The patient agrees to be discharged via taxi to [facility]. This morning prior to discharge, he vacillated about this decision. He reported not wanting to go to rehab because he did not have clothing from various people's houses in the area. He was bargaining to be able to go via taxi to other houses to excelsior picker his belongings before he goes to the rehab. Treatment team declined to this request due to risk of patient's relapse and inability to guarantee transportation to the inpatient facility. Discharge planning attempted to reach out to his probation and was notified that if he is not transported directly to rehab, then he will be in violation of probation and will need to be transported to [facility]. The patient was initially in agreement with this plan. He spoke with his transit authority police officer and told conventional underwriter and the staff "I'll just to go to [facility]." The patient later changed his mind and decided to go to substance use treatment at [facility] via taxi. He was escorted to the taxi via staff and shoe planner. MENTAL STATUS EXAM: The patient was well groomed, wearing glasses, in his own clothing. He was agitated and labile. He was hyperactive, manipulative, and defensive. He was alert and oriented x3. Concentration was poor. Affect was restricted. Mood was irritable. Speech was rapid and loud. Thought process circumstantial in regards to needing to obtain belongings from various places in the community. Thought content, denied AV hallucinations, denied SI, HI, or . His insight was poor, his judgment was poor, his fund of knowledge was adequate. Instructions were given to the patient by nursing staff. MEDICATIONS: Following medications were electronically prescribed to [facility] in [place] to be delivered to [facility]. 1. Strattera 40 mg p.o. daily. 2. Abreva 10% topical. 3. Gabapentin 900 mg p.o. t.i.d. 4. Ibuprofen 600 mg p.o. q.6 hours p.r.n. pain. 5. Nicotine Lozenge 4 mg q.2 hours p.r.n. craving. 6. Biotene oral rinse p.r.n. by mouth. 7. Quetiapine 50 mg at bedtime. 8. Sertraline 100 mg daily. 9. Multivitamin 1 tab p.o. daily. DIET: Regular. ACTIVITY: Ambulation as tolerated. Tobacco cessation provided to patient. There are no pending labs or diagnostic studies. He completed a urine drug screen prior to leaving the unit and these were negative. He received HIV testing upon request while here, which was nonreactive. FOLLOWUP CARE: The patient was transported via taxi directly to [facility] for inpatient substance use treatment. He will follow up with primary care provider, Dr. Jeffrey Sargent, after discharge from inpatient. HOSPITAL COURSE: A. Reason for admission: The patient was brought to the emergency department with auditory hallucinations and thoughts of killing people. He was transported via police. Upon arrival to the emergency department , his alcohol level was over 200 and presented to the emergency department multiple times with alcohol intoxication and physical complaints due to intoxication and physical findings. B. Psychiatric treatment rendered: The patient was admitted to Adult Behavioral Services Unit on status. His code status was full. He was placed on checks every 15 minutes. He was encouraged to participate in supportive milieu and individual and group psychoeducation. He was given a JUANCHO packet to pursue substance use referrals and he did so. We initiated a Librium taper and vitamin supplements. First day, the patient was seclusive to bed, sleeping most of the day, minimally participated in interview with any staff members. Second day, he was euthymic, interactive, answered questions fully and had appropriate questions regards to admission and treatment planning. Throughout the stay, he continued to be motivated to pursue inpatient substance use treatment. He was in behavioral control and participated fully in unit programming. In the past 2 days, he was more hyperactive, did not sleep, tried various medications for insomnia to no avail. He had multiple requests for medications for physical complaints including sciatica. He received Flexeril once and reported relief. He was informed that this would be a one-time dose due to being a controlled substance. He was encouraged to utilize nonpharmacological options for treatment of sciatic pain. This morning, as stated above, he was hyperactive, irritable, and indecisive in regards to his discharge plan. It was only with information of being discharged to police custody that he then agreed to go to substance use treatment facility directly via taxi. The patient was notified of risk of relapse if allowed to make other stops on the way to rehab. ESSIE DELACRUZ NP [id number]/[facility] #: [id number] EMILIE
== END 2017-06-22 10:20 | DRG 774 ==
LOC: ED 18:03 → BSU 06-14 10:54
PROVIDERS: ADMIT Psychiatry & Neurology Psychiatry; ATTEND Psychiatry & Neurology Psychiatry
DX: F10.10 Alcohol abuse, uncomplicated (principal); F14.90 Cocaine use, unspecified, uncomplicated; R45.851 Suicidal ideations; B00.89 Other herpesviral infection; R44.0 Auditory hallucinations; Y90.7 Blood alcohol level of 200-239 mg/100 ml; F43.10 Post-traumatic stress disorder, unspecified; F90.2 Attention-deficit hyperactivity disorder, combined type; F17.210 Nicotine dependence, cigarettes, uncomplicated; M54.30 Sciatica, unspecified side; K11.7 Disturbances of salivary secretion; Z79.899 Other long term (current) drug therapy; Z88.8 Allergy status to other drugs, medicaments and biological substances
CPT/HCPCS: 36415; 80053; 80307; 80320; 80329; 81003; 84443; 85025; 86703; 90686; A9270-GY; G0480; J1200; J1630; J2060; J3411

== ENCOUNTER 2017-07-21 22:12 | Emergency (ER) | payer MEDICAID, OTHER ==
[2017-07-21 22:30] VITALS: BP 121/81
[2017-07-21 23:01] LABS: Hematocrit 40 % (42-52); Hemoglobin 13.9 g/dl (14.0-18.0); Mean Corpuscular HGB Conc 35 g/dl (31-36); Mean Corpuscular Hemoglobin 31 pg (27-31); Mean Corpuscular Volume 90 fL (80-94); Mean Platelet Volume 9 um3 (7.4-10.4); Red Blood Count 4.48 10^6/ul (4.0-5.4); Red Cell Distribution Width 13 % (10.5-15); White Blood Count 4.6 10^3/ul (3.5-10.8)
[2017-07-21 23:04] LABS: Urine Bacteria Absent (Absent); Urine Bilirubin Negative (Negative); Urine Glucose Negative (Negative); Urine Nitrite Negative (Negative)
[2017-07-21 23:18] LABS: ALT 18 U/L (7-52); AST 23 U/L (13-39); Albumin 4.2 g/dL (3.2-5.2); Alkaline Phosphatase 59 U/L (34-104); Anion Gap 8 mmol/L (2-11); BUN/Creatinine Ratio 14.3 (8-20); Benzodiazepine Urine Screen None Detected (None Detect); Blood Urea Nitrogen 15 mg/dL (6-24); CO2 Carbon Dioxide 26 mmol/L (22-32); Calcium 9.1 mg/dL (8.6-10.3); Chloride 108 mmol/L (101-111); EGFR African American 95.8 (>60); EGFR Non-African American 74.5 (>60); Globulin 2.9 g/dL (2-4); Glucose 92 mg/dL (70-100); Sodium 142 mmol/L (133-145); Total Protein 7.1 g/dL (6.4-8.9)
[2017-07-21 23:19] LABS: Acetaminophen < 15 mcg/mL; Alcohol 208 mg/dL (<10); Salicylate < 2.50 mg/dL (<30)
[2017-07-21 23:33] LABS: TSH (Thyroid Stimulating Horm) 2.09 mcIU/mL (0.34-5.60)
--- NOTE | 2017-07-22 06:35 | ED ---
Lashonda Chaudhry Rebecca, scribed for Bhanu Cooper on 07/21/17 at 2316 . Psychiatric Complaint - HPI Summary HPI Summary: Pt is a 51 y/o M who presents to ED c/o HIs and auditory hallucinations since earlier today. Reports the hallucinations are saying "the world is bad right now " and to "take care of the world." Sx aggravated by medication non-compliance and alleviated by nothing. Denies SIs. He is supposed to be taking Zoloft, Strattera and Gabapentin though he has been without Zoloft and Gapabentin for the last 2 days. Pt reports that he is an alcoholic and per triage, pt has been drinking EtOH today. Pt was recently discharged from a psychiatric/detox admission about 2 weeks ago. Patient has experienced hallucinations in the past. PMHx Bipolar Disorder and PTSD. - History Of Current Complaint Chief Complaint: EDMentalHealth Time Seen by Provider: 07/21/17 22:37 Hx Obtained From: Patient Onset/Duration: Still Present Aggravating Factor(s): Medication Non-compliance Alleviating Factor(s): Nothing Associated Signs And Symptoms: Positive: Hallucinating - Auditory Related History: Positive For: Prior Psychiatric Issues - PTSD, Bipolar Disorder Has Suicidal: Denies: Thoughts Has Homicidal: Reports: Thoughts - Allergies/Home Medications Allergies/Adverse Reactions: Allergies Allergy/AdvReac Type Severity Reaction Status Date / Time Hydroxyzine [From Atarax] AdvReac Agitation Verified 07/21/17 23:00 PMH/Surg Hx/FS Hx/Imm Hx Endocrine/Hematology History: Denies: Hx Diabetes, Hx Thyroid Disease Cardiovascular History: Denies: Hx Congestive Heart Failure, Hx Hypertension, Hx Pacemaker/ICD, Other Cardiovascular Problems/Disorders Respiratory History: Denies: Hx Asthma, Hx Chronic Obstructive Pulmonary Disease (COPD), Hx Pulmonary Embolism, Other Respiratory Problems/Disorders GI History: Denies: Hx Ulcer Sensory History: Denies: Hx Contacts or Glasses, Hx Hearing Aid Opthamlomology History: Denies: Hx Contacts or Glasses Psychiatric History: Reports: Hx Post Traumatic Stress Disorder, Hx Bipolar Disorder - THIS MAY NOT BE ACTUAL DX BUT PT ON MOOD STABILIZERS, Hx of Violent Episodes Against Others, Hx Substance Abuse - ETOH Denies: Hx Eating Disorder, Hx Panic Disorder - Surgical History Surgery Procedure, Year, and Place: Throat, face reconstruction - Immunization History Date of Tetanus Vaccine: unk Date of Influenza Vaccine: unk Infectious Disease History: No Infectious Disease History: Denies: Hx Clostridium Difficile, Hx Hepatitis, Hx Human Immunodeficiency Virus (HIV), Hx of Known/Suspected MRSA, Hx Shingles, Hx Tuberculosis, Hx Known/ Suspected VRE, Hx Known/Suspected VRSA, History Other Infectious Disease, Traveled Outside the [place] in Last 30 Days - Family History Known Family History: Positive: Hypertension Negative: Blood Disorder - Social History Alcohol Use: Daily Alcohol Amount: drinks "in excess every other day" Hx Substance Use: Yes Substance Use Type: Reports: Cocaine Substance Use Comment - Amount & Last Used: cocaine use Hx Tobacco Use: No Smoking Status (MU): Heavy Every Day Tobacco Smoker Type: Cigarettes Amount Used/How Often: 1/2 ppd Length of Time of Smoking/Using Tobacco: since age 15 Have You Smoked in the Last Year: Yes Review of Systems Neurological: Other - Auditory hallucinations Positive: Other - HIs, NEGATIVE: SIs All Other Systems Reviewed And Are Negative: Yes Physical Exam - Summary Physical Exam Summary: Appearance: Well appearing, no pain distress Skin: warm, dry, reflects adequate perfusion Head/face: normal Eyes: EOMI, PAULO ENT: normal Neck: supple, nontender Respiratory: CTA, breath sounds present Cardiovascular: RRR, pulses symmetrical Abdomen: nontender, soft Bowel: present Musculoskeletal: normal, strength/ROM intact Neuro: normal, sensory motor intact, A&Ox3 Psychiatric: Depressed affect Triage Information Reviewed: Yes Vital Signs On Initial Exam: Initial Vitals Temp Pulse Resp BP Pulse Ox 98.4 F 84 14 121/81 95 07/21/17 22:26 07/21/17 22:26 07/21/17 22:26 07/21/17 22:26 07/21/17 22:26 Vital Signs Reviewed: Yes Diagnostics - Vital Signs Vital Signs Temp Pulse Resp BP Pulse Ox 07/21/17 22:26 98.4 F 84 14 121/81 95 - Laboratory Result Diagrams: 07/21/17 22:45 07/21/17 22:45 Lab Statement: Any lab studies that have been ordered have been reviewed, and results considered in the medical decision making process. Course/Dx - Course Assessment/Plan: Pt is a 51 y/o M who presents to ED c/o HIs and auditory hallucinations since earlier today. Reports the hallucinations are saying "the world is bad right now" and to "take care of the world." Sx aggravated by medication non-compliance and alleviated by nothing. Denies SIs. He is supposed to be taking Zoloft, Strattera and Gabapentin though he has been without Zoloft and Gapabentin for the last 2 days. Pt reports that he is an alcoholic and per triage, pt has been drinking EtOH today. Pt was recently discharged from a psychiatric/detox admission about 2 weeks ago. Patient has experienced hallucinations in the past. PMHx Bipolar Disorder and PTSD. Serum alcohol of 208. Upon completiong of [facility] and consultation with Dr. Elias it has been determined that the pt willbe an involuntary admission. He will be admitted with Dx of acute psychoses and depression. Allergy noted. - Differential Dx/Clinical Impression Provider Diagnosis: Acute psychosis, Depression Discharge - Discharge Plan Condition: Stable Disposition: ADMITTED TO [facility] The documentation as recorded by the Lashonda harris Rebecca accurately reflects the service I personally performed and the decisions made by , Bhanu Cooper.
== END 2017-07-22 10:37 | disposition short-term general hospital (02) ==
LOC: ED 22:12
DX: F23 Brief psychotic disorder (principal); F32.9 Major depressive disorder, single episode, unspecified; R44.0 Auditory hallucinations; F17.210 Nicotine dependence, cigarettes, uncomplicated
CPT/HCPCS: 36415; 80053; 80307; 80320; 80329; 81003; 81015; 84443; 85025; 99285; G0480

== ENCOUNTER 2017-07-24 04:48 | Emergency (ER) | payer OTHER ==
[2017-07-24 06:18] LABS: Hematocrit 39 % (42-52); Hemoglobin 13.2 g/dl (14.0-18.0); Mean Corpuscular HGB Conc 34 g/dl (31-36); Mean Corpuscular Hemoglobin 31 pg (27-31); Mean Corpuscular Volume 90 fL (80-94); Mean Platelet Volume 8 um3 (7.4-10.4); Red Blood Count 4.31 10^6/ul (4.0-5.4); Red Cell Distribution Width 13 % (10.5-15); White Blood Count 6.9 10^3/ul (3.5-10.8)
[2017-07-24 06:21] LABS: Urine Bacteria Absent (Absent); Urine Bilirubin Negative (Negative); Urine Glucose Negative (Negative); Urine Nitrite Negative (Negative)
[2017-07-24 06:36] LABS: ALT 16 U/L (7-52); AST 29 U/L (13-39); Albumin 4.2 g/dL (3.2-5.2); Alkaline Phosphatase 67 U/L (34-104); Anion Gap 8 mmol/L (2-11); BUN/Creatinine Ratio 10.9 (8-20); Blood Urea Nitrogen 10 mg/dL (6-24); CO2 Carbon Dioxide 26 mmol/L (22-32); Calcium 8.9 mg/dL (8.6-10.3); Chloride 104 mmol/L (101-111); EGFR African American 111.5 (>60); EGFR Non-African American 86.7 (>60); Globulin 2.8 g/dL (2-4); Glucose 87 mg/dL (70-100); Potassium 3.7 mmol/L (3.5-5.0); Sodium 138 mmol/L (133-145)
[2017-07-24 06:41] LABS: Benzodiazepine Urine Screen None Detected (None Detect)
[2017-07-24 06:47] LABS: Acetaminophen < 15 mcg/mL; Alcohol 63 mg/dL (<10); Salicylate < 2.50 mg/dL (<30)
[2017-07-24 07:17] LABS: TSH (Thyroid Stimulating Horm) 2.17 mcIU/mL (0.34-5.60)
[2017-07-24 12:01] VITALS: BP 148/90
--- NOTE | 2017-07-24 16:44 | PN ---
Meri Chaudhry SooYoung, scribed for Jeffrey Sanders MD on 07/24/17 at 1511 . Progress Note - Progress Note Date of Service: 07/24/17 Note: SO from Dr. Richards at shift change pending [facility]HE. COT: Pt was seen by Dr. Kearney who [facility] Dx: Alochol and cocaine abuse. Dispo: Stable, home. The documentation as recorded by the Meri harris SooYoung accurately reflects the service I personally performed and the decisions made by Tommy carlton Walter, MD.
--- NOTE | 2017-07-25 12:49 | ED ---
Julio Chaudhry Benjamin, scribed for Lauro Richards MD on 07/24/17 at 0525 . Psychiatric Complaint - HPI Summary HPI Summary: 51yo male c/o depression. Pt has hx of depression and anxiety. Denies any SI or suicidal attempts. Pt reports hearing voices for 6-7 months. Denies any homicidal ideations. Pt takes Strattera, Zoloft and gabapentin usually. Pt took Strattera today but not Zoloft and gabapentin. - History Of Current Complaint Chief Complaint: EDMentalHealth Time Seen by Provider: 07/24/17 05:01 Hx Obtained From: Patient Onset/Duration: Gradual Onset, Still Present Timing: Constant Severity Initially: Moderate Severity Currently: Moderate Character: Depressed, Anxious Aggravating Factor(s): Nothing Alleviating Factor(s): Nothing Associated Signs And Symptoms: Positive: Hallucinating - auditory Has Suicidal: Denies: Thoughts, With A Plan Has Homicidal: Denies: Thoughts, With A Plan - Allergies/Home Medications Allergies/Adverse Reactions: Allergies Allergy/AdvReac Type Severity Reaction Status Date / Time Hydroxyzine [From Atarax] AdvReac Agitation Verified 07/21/17 23:00 PMH/Surg Hx/FS Hx/Imm Hx Endocrine/Hematology History: Denies: Hx Diabetes, Hx Thyroid Disease Cardiovascular History: Denies: Hx Congestive Heart Failure, Hx Hypertension, Hx Pacemaker/ICD, Other Cardiovascular Problems/Disorders Respiratory History: Denies: Hx Asthma, Hx Chronic Obstructive Pulmonary Disease (COPD), Hx Pulmonary Embolism, Other Respiratory Problems/Disorders GI History: Denies: Hx Ulcer Sensory History: Denies: Hx Contacts or Glasses, Hx Hearing Aid Opthamlomology History: Denies: Hx Contacts or Glasses Psychiatric History: Reports: Hx Anxiety, Hx Depression, Hx Post Traumatic Stress Disorder, Hx Bipolar Disorder - THIS MAY NOT BE ACTUAL DX BUT PT ON MOOD STABILIZERS, Hx of Violent Episodes Against Others, Hx Substance Abuse - ETOH Denies: Hx Eating Disorder, Hx Panic Disorder - Surgical History Surgery Procedure, Year, and Place: Throat, face reconstruction - Immunization History Date of Tetanus Vaccine: unk Date of Influenza Vaccine: unk Infectious Disease History: No Infectious Disease History: Denies: Hx Clostridium Difficile, Hx Hepatitis, Hx Human Immunodeficiency Virus (HIV), Hx of Known/Suspected MRSA, Hx Shingles, Hx Tuberculosis, Hx Known/ Suspected VRE, Hx Known/Suspected VRSA, History Other Infectious Disease, Traveled Outside the [place] in Last 30 Days - Family History Known Family History: Positive: Hypertension Negative: Blood Disorder - Social History Alcohol Use: Daily Alcohol Amount: drinks "in excess every other day" Hx Substance Use: Yes Substance Use Type: Reports: Cocaine Substance Use Comment - Amount & Last Used: cocaine use Hx Tobacco Use: No Smoking Status (MU): Heavy Every Day Tobacco Smoker Type: Cigarettes Amount Used/How Often: 1/2 ppd Length of Time of Smoking/Using Tobacco: since age 15 Have You Smoked in the Last Year: Yes Review of Systems Constitutional: Negative Eyes: Negative ENT: Negative Cardiovascular: Negative Respiratory: Negative Gastrointestinal: Negative Genitourinary: Negative Musculoskeletal: Negative Skin: Negative Positive: Headache Positive: Depressed All Other Systems Reviewed And Are Negative: Yes Physical Exam - Summary Physical Exam Summary: Appearance: Non-toxic well-Appearing, no pain distress, well nourished Skin: warm, skin color reflects adequate perfusion, dry, no acute skin lesions Head Exam: Normal Eye Exam: EOMI, PERRL, conjunctiva clear ENT: pharynx nml, TM nml Neck exam: Supple, nontender Respiratory Exam: CTA, breath sounds present, no rales, no rhonchi, no wheezes Cardiovascular Exam: RRR, S1, S2, No Murmur, No rub, No gallops, pulses symmetrical Abdomen Description: Nontender, Soft, no guarding, no rebound, nondistended, no organomegaly Bowel Sounds: Present Musculoskeletal: Normal, Strength/ROM Intact Neurological Exam: nml, sens/motor intact, A&Ox3, no cerebellar dysfunction Psychological Exam: depressed mood Triage Information Reviewed: Yes Vital Signs On Initial Exam: Initial Vitals Temp Pulse Resp BP Pulse Ox 98.2 F 82 16 129/99 97 07/24/17 04:56 07/24/17 04:56 07/24/17 04:56 07/24/17 04:56 07/24/17 04:56 Vital Signs Reviewed: Yes - Radha Coma Scale Coma Scale Total: 15 Diagnostics - Vital Signs Vital Signs Temp Pulse Resp BP Pulse Ox 07/24/17 04:56 98.2 F 82 16 129/99 97 - Laboratory Lab Results: Lab Results 07/24/17 07/24/17 07/24/17 Range/Units 06:02 06:02 06:02 WBC 6.9 (3.5-10.8) 10^3/ul RBC 4.31 (4.0-5.4) 10^6/ul Hgb 13.2 L (14.0-18.0) g/dl Hct 39 L (42-52) % MCV 90 (80-94) fL MCH 31 (27-31) pg MCHC 34 (31-36) g/dl RDW 13 (10.5-15) % Plt Count 177 (150-450) 10^3/ul MPV 8 (7.4-10.4) um3 Neut % (Auto) 69.9 (38-83) % Lymph % (Auto) 23.1 L (25-47) % [place] % (Auto) 5.9 (1-9) % Eos % (Auto) 0.3 (0-6) % Baso % (Auto) 0.8 (0-2) % Absolute Neuts (auto) 4.8 (1.5-7.7) 10^3/ul Absolute Lymphs (auto) 1.6 (1.0-4.8) 10^3/ul Absolute Monos (auto) 0.4 (0-0.8) 10^3/ul Absolute Eos (auto) 0 (0-0.6) 10^3/ul Absolute Basos (auto) 0.1 (0-0.2) 10^3/ul Absolute Nucleated RBC 0 10^3/ul Nucleated RBC % 0 Sodium 138 (133-145) mmol/L Potassium 3.7 (3.5-5.0) mmol/L Chloride 104 (101-111) mmol/L Carbon Dioxide 26 (22-32) mmol/L Anion Gap 8 (2-11) mmol/L BUN 10 (6-24) mg/dL Creatinine 0.92 (0.67-1.17) mg/dL Est GFR ( Amer) 111.5 (>60) Est GFR (Non-Af Amer) 86.7 (>60) BUN/Creatinine Ratio 10.9 (8-20) Glucose 87 (70-100) mg/dL Calcium 8.9 (8.6-10.3) mg/dL Total Bilirubin 0.50 (0.2-1.0) mg/dL AST 29 (13-39) U/L ALT 16 (7-52) U/L Alkaline Phosphatase 67 (34-104) U/L Total Protein 7.0 (6.4-8.9) g/dL Albumin 4.2 (3.2-5.2) g/dL Globulin 2.8 (2-4) g/dL Albumin/Globulin Ratio 1.5 (1-3) TSH Pending Urine Color Urine Appearance Urine pH (5-9) Ur Specific [place] (1.010-1.030) Urine Protein (Negative) Urine Ketones (Negative) Urine Blood (Negative) Urine Nitrate (Negative) Urine Bilirubin (Negative) Urine Urobilinogen (Negative) Ur Leukocyte Esterase (Negative) Urine WBC (Auto) (Absent) Urine RBC (Auto) (Absent) Urine Bacteria (Absent) Urine Glucose (Negative) Salicylates < 2.50 (<30) mg/dL Urine Opiates Screen None detected (None Detect) Acetaminophen < 15 mcg/mL Ur Barbiturates Screen None detected (None Detect) Ur Phencyclidine Scrn None detected (None Detect) Ur Amphetamines Screen None detected (None Detect) U Benzodiazepines Scrn None detected (None Detect) Urine Cocaine Screen Presumptive positive H (None Detect) U Cannabinoids Screen None detected (None Detect) Serum Alcohol 63 H (<10) mg/dL 07/24/17 Range/Units 06:02 WBC (3.5-10.8) 10^3/ul RBC (4.0-5.4) 10^6/ul Hgb (14.0-18.0) g/dl Hct (42-52) % MCV (80-94) fL MCH (27-31) pg MCHC (31-36) g/dl RDW (10.5-15) % Plt Count (150-450) 10^3/ul MPV (7.4-10.4) um3 Neut % (Auto) (38-83) % Lymph % (Auto) (25-47) % [place] % (Auto) (1-9) % Eos % (Auto) (0-6) % Baso % (Auto) (0-2) % Absolute Neuts (auto) (1.5-7.7) 10^3/ul Absolute Lymphs (auto) (1.0-4.8) 10^3/ul Absolute Monos (auto) (0-0.8) 10^3/ul Absolute Eos (auto) (0-0.6) 10^3/ul Absolute Basos (auto) (0-0.2) 10^3/ul Absolute Nucleated RBC 10^3/ul Nucleated RBC % Sodium (133-145) mmol/L Potassium (3.5-5.0) mmol/L Chloride (101-111) mmol/L Carbon Dioxide (22-32) mmol/L Anion Gap (2-11) mmol/L BUN (6-24) mg/dL Creatinine (0.67-1.17) mg/dL Est GFR ( Amer) (>60) Est GFR (Non-Af Amer) (>60) BUN/Creatinine Ratio (8-20) Glucose (70-100) mg/dL Calcium (8.6-10.3) mg/dL Total Bilirubin (0.2-1.0) mg/dL AST (13-39) U/L ALT (7-52) U/L Alkaline Phosphatase (34-104) U/L Total Protein (6.4-8.9) g/dL Albumin (3.2-5.2) g/dL Globulin (2-4) g/dL Albumin/Globulin Ratio (1-3) TSH Urine Color Yellow Urine Appearance Clear Urine pH 6.0 (5-9) Ur Specific [place] 1.011 (1.010-1.030) Urine Protein Negative (Negative) Urine Ketones Negative (Negative) Urine Blood 1+ H (Negative) Urine Nitrate Negative (Negative) Urine Bilirubin Negative (Negative) Urine Urobilinogen Negative (Negative) Ur Leukocyte Esterase Negative (Negative) Urine WBC (Auto) Trace(0-5/hpf) (Absent) Urine RBC (Auto) Trace(0-2/hpf) (Absent) Urine Bacteria Absent (Absent) Urine Glucose Negative (Negative) Salicylates (<30) mg/dL Urine Opiates Screen (None Detect) Acetaminophen mcg/mL Ur Barbiturates Screen (None Detect) Ur Phencyclidine Scrn (None Detect) Ur Amphetamines Screen (None Detect) U Benzodiazepines Scrn (None Detect) Urine Cocaine Screen (None Detect) U Cannabinoids Screen (None Detect) Serum Alcohol (<10) mg/dL Result Diagrams: 07/24/17 06:02 07/24/17 06:02 Lab Statement: Any lab studies that have been ordered have been reviewed, and results considered in the medical decision making process. Course/Dx - Course Course Of Treatment: Reviewed pts medication and allergy lists. Blood pressure noted. - Differential Dx/Clinical Impression Provider Diagnosis: Depression, Substance abuse Discharge - Discharge Plan Condition: Good Disposition: HOME Referrals: Jeffrey Sargent MD [Primary Care Provider] - The documentation as recorded by the Julio harris Benjamin accurately reflects the service I personally performed and the decisions made by Susie carlton Afoma Frances, MD.
== END 2017-07-24 12:15 | disposition home or self-care (01) ==
LOC: ED 04:48
DX: F32.9 Major depressive disorder, single episode, unspecified (principal); F19.10 Other psychoactive substance abuse, uncomplicated; F41.9 Anxiety disorder, unspecified; R44.0 Auditory hallucinations; F17.210 Nicotine dependence, cigarettes, uncomplicated; R51 Headache
CPT/HCPCS: 36415; 80053; 80307; 80320; 80329; 81003; 81015; 84443; 85025; 99284; G0480

== ENCOUNTER 2018-02-11 21:51 | Emergency (ER) | payer MEDICAID ==
[2018-02-11 22:35] LABS: ABS Basophils 0 10^3/ul (0-0.2); ABS Eosinophils 0 10^3/ul (0-0.6); ABS Lymphocytes 1.6 10^3/ul (1.0-4.8); ABS Monocytes 0.3 10^3/ul (0-0.8); ABS Neutrophils 4.5 10^3/ul (1.5-7.7); ABS Nucleated RBC 0 10^3/ul; Eosinophil % 0.1 % (0-6); Hematocrit 45 % (42-52); Lymphocyte % 24.9 % (25-47); Mean Corpuscular HGB Conc 34 g/dl (31-36); Mean Corpuscular Hemoglobin 31 pg (27-31); Mean Corpuscular Volume 92 fL (80-94); Mean Platelet Volume 9.4 um3 (7.4-10.4); Nucleated Red Blood Cells % 0; Platelet Count 170 10^3/ul (150-450); Red Blood Count 4.84 10^6/ul (4.0-5.4); Red Cell Distribution Width 14 % (10.5-15); White Blood Count 6.4 10^3/ul (3.5-10.8)
[2018-02-11 22:53] LABS: EGFR Non-African American 67.5 (>60)
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
[2018-02-12 05:54] VITALS: BP 139/84
== END 2018-02-12 05:53 | disposition home or self-care (01) ==
LOC: ED 21:51
DX: F10.129 Alcohol abuse with intoxication, unspecified (principal); F17.210 Nicotine dependence, cigarettes, uncomplicated
CPT/HCPCS: 36415; 80053; 80307; 80320; 80329; 84443; 85025; 99284; G0480

== ENCOUNTER 2018-04-07 10:50 | Emergency (ER) | payer MEDICAID ==
[2018-04-07 11:06] VITALS: BP 136/77
--- NOTE | 2018-04-07 11:47 | UC ---
Skin Complaint HPI - HPI Summary HPI Summary: 52 yo male with hx of MRSA abraided his knees 2 weeks ago developed pimples/papules on legs then bilat axillary abscesses and pustule left anabaptist has squeezed them all left axilla resolve - History of Current Complaint Chief Complaint: UCSkin Time Seen by Provider: 04/07/18 11:39 Stated Complaint: RASH Hx Obtained From: Patient Onset/Duration: Gradual Onset, Lasting Weeks Timing: Constant Onset Severity: Mild Current Severity: Moderate Pain Intensity: 5 Pain Scale Used: 0-10 Numeric Location: Discrete - right axilla Character: Pruritus, Redness, Raised, Painful Associated Signs & Symptoms: Positive: Negative, Drainage, Tenderness Similar Episode/Dx as: MRSA - Allergy/Home Medications Allergies/Adverse Reactions: Allergies Allergy/AdvReac Type Severity Reaction Status Date / Time hydroxyzine Allergy Agitation Verified 04/07/18 11:06 Review of Systems Constitutional: Negative Skin: Negative Eyes: Negative ENT: Negative Respiratory: Negative Cardiovascular: Negative Gastrointestinal: Negative Genitourinary: Negative Motor: Negative Neurovascular: Negative Musculoskeletal: Negative Neurological: Negative Psychological: Negative Is Patient Immunocompromised?: No All Other Systems Reviewed And Are Negative: Yes PMH/Surg Hx/FS Hx/Imm Hx Previously Healthy: Yes - Surgical History Surgical History: Yes Surgery Procedure, Year, and Place: Throat, face reconstruction - Family History Known Family History: Positive: Hypertension Negative: Blood Disorder - Social History Alcohol Use: Daily Alcohol Amount: drinks "in excess every other day" Substance Use Type: Cocaine Substance Use Comment - Amount & Last Used: cocaine use Smoking Status (MU): Never Smoked Tobacco Type: Cigarettes Amount Used/How Often: 1/2 ppd Length of Time of Smoking/Using Tobacco: since age 15 Have You Smoked in the Last Year: Yes - Immunization History Most Recent Influenza Vaccination: unk Most Recent Pneumonia Vaccination: unk Physical Exam Triage Information Reviewed: Yes Appearance: Well-Appearing, No Pain Distress, Well-Nourished Vital Signs: Initial Vital Signs Temp 99 F 04/07/18 11:04 Pulse 74 04/07/18 11:04 Resp 16 04/07/18 11:04 BP 136/77 04/07/18 11:04 Pulse Ox 100 04/07/18 11:04 Vital Signs Reviewed: Yes Eyes: Positive: Conjunctiva Clear ENT: Positive: Hearing grossly normal. Negative: TMs normal, TM bulging, Uvula midline Neck: Positive: Supple, Nontender Respiratory: Positive: Lungs clear, Normal breath sounds, No respiratory distress, No accessory muscle use Cardiovascular: Positive: RRR, No Murmur Musculoskeletal: Positive: No Edema Neurological: Positive: Alert Psychological Exam: Normal Skin Exam: Other - see image Course/Dx - Diagnoses Provider Diagnoses: abscess right axilla. hx of MRSA Procedures - Procedure Summary Procedure Summary: INCISION AND DRAINAGE ABSCESS RIGHT AXILLA procedure explained and all questions answer TIME OUT sterile prep anest with 1.5 cc 1%lido incised with 11 blade about 1 cc pus expressed sterile dresssing applied Discharge - Sign-Out/Discharge Documenting (check all that apply): Discharge/Admit/Transfer - Discharge Plan Condition: Stable Disposition: HOME Prescriptions: Sulfamethox/Trimethoprim DS* [Bactrim DS 800/160 TAB*] 1 tab PO BID #14 tab Patient Education Materials: MRSA (Methicillin-Resistant Staphylococcus Aureus ) (ED), Abscess (ED) Referrals: Jeffrey Sargent MD [Primary Care Provider] - If Needed Additional Instructions: return in 3-4 days if not better aleve - Billing Disposition and Condition Condition: STABLE Disposition: Home Images Front/Back of Body, Lg (Pleasants): 1 - abscess 2 - papule 3 - multiple papules with surrounding cellulitis
[2018-04-07] MEDS ORDERED: Lidocaine 1% MPF* 2 ML VIAL INJ ONE (11:51)
[2018-04-07] MEDS ORDERED: Lidocaine 1%* 5 ML VIAL INJ ONE (11:56)
[2018-04-07] MEDS ORDERED: Sulfamethox/Trimethoprim DS 800/160* TAB PO ONE ×2 (12:11→12:12)
[2018-04-07] MEDS ORDERED: Naproxen TAB* 250 MG PO ONE (12:11)
== END 2018-04-07 12:30 | disposition home or self-care (01) ==
LOC: UCEAST 10:50
DX: L02.411 Cutaneous abscess of right axilla (principal); F17.210 Nicotine dependence, cigarettes, uncomplicated; Z88.8 Allergy status to other drugs, medicaments and biological substances; Z86.14 Personal history of Methicillin resistant Staphylococcus aureus infection
CPT/HCPCS: 10060; 99213; A9270-GY; G0463

== ENCOUNTER 2018-10-06 18:25 | Emergency (ER) | payer MEDICAID, OTHER ==
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
[2018-10-06 22:55] VITALS: BP 118/69
== END 2018-10-06 22:54 | disposition home or self-care (01) ==
LOC: ED 18:25
DX: R51 Headache (principal); M25.512 Pain in left shoulder; Y09 Assault by unspecified means; Y92.039 Unspecified place in apartment as the place of occurrence of the external cause; F17.210 Nicotine dependence, cigarettes, uncomplicated; F43.10 Post-traumatic stress disorder, unspecified; F32.9 Major depressive disorder, single episode, unspecified; F41.9 Anxiety disorder, unspecified
CPT/HCPCS: 99282

== ENCOUNTER 2018-10-22 10:14 | Emergency (ER) | payer OTHER ==
[2018-10-22] MEDS ORDERED: HYDROcodone/ACETAMIN 5-325 MG* 1 TAB PO ONE (10:25)
[2018-10-22 10:27] VITALS: BP 152/116
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
== END 2018-10-22 12:15 | disposition home or self-care (01) ==
LOC: UCEAST 10:14
DX: S43.002A Unspecified subluxation of left shoulder joint, initial encounter (principal); S42.292A Other displaced fracture of upper end of left humerus, initial encounter for closed fracture; F17.210 Nicotine dependence, cigarettes, uncomplicated; Z88.8 Allergy status to other drugs, medicaments and biological substances; W00.0XXA Fall on same level due to ice and snow, initial encounter; Y92.9 Unspecified place or not applicable
CPT/HCPCS: 99212; G0463

== ENCOUNTER 2019-01-17 10:20 | Day surgery (SDC) | payer OTHER ==
[~2019-01-17 10:20] MED LIST: Buffered Lidocaine 1% SYRIN* 1 ML/SYRINGE INTRADERM ONE; Dexamethasone IV* 4 MG/ML 1 ML (4 MG) IV SLOW PU ONE; Dexamethasone IV* 4 MG/ML 1 ML (4 MG) ONE; Famotidine IV* 10 MG/ML 2 ML (20 mg) IV ONE; Famotidine IV* 10 MG/ML 2 ML (20 mg) ONE; Lactated Ringers 1000 ML Bag* 1,000 ML IV SCH; ceFAZolin 2 GM in NS PREMIX(*) 2 GM/100 ML BAG IVPB ONE
[2019-01-17] MEDS ORDERED: Lidocaine 2% PF * 5 ML VIAL ONE (11:38)
[2019-01-17] MEDS ORDERED: Atracurium* 10 MG/ML 10 ML VIAL ONE (11:38)
[2019-01-17] MEDS ORDERED: Midazolam* 1 MG/ML 5 ML VIAL (5 MG) ONE (11:38)
[2019-01-17] MEDS ORDERED: Propofol* 10 MG/ML 20 ML BTL ONE (11:38)
[2019-01-17] MEDS ORDERED: fentaNYL* 50 MCG/ML 2 ML VIAL (100 MCG VIAL) ONE ×3 (11:38→13:53)
[2019-01-17] MEDS ORDERED: Ondansetron INJ* 2 MG/ML VIAL ONE (11:38)
[2019-01-17] MEDS ORDERED: ROPIVACAINE 5 MG/ML 30 ML BTL (0.5%) ONE (11:44)
[2019-01-17] MEDS ORDERED: EPINEPHRINE 1 MG/ML 1 ML VIAL ONE (11:59)
[2019-01-17] MEDS ORDERED: Bupivacaine 0.5% W/EPI SDV* 30 ML VIAL ONE (11:59)
[2019-01-17] MEDS ORDERED: Scopolamine 1.5 mg* PATCH TRANSDERM SCH (13:00)
[2019-01-17] MEDS ORDERED: HYDROmorphone INJ1* 1 MG/ML SYRINGE IV PRN (13:29)
[2019-01-17] MEDS ORDERED: oxyCODONE/Acetamin 5/325 MG* TAB PO PRN (13:29)
[2019-01-17] MEDS ORDERED: Ondansetron INJ* 2 MG/ML VIAL IV PRN (13:29)
[2019-01-17] MEDS ORDERED: DiMENhydriNATE IV* 50 MG/ML VIAL IV PUSH PRN (13:29)
[2019-01-17] MEDS ORDERED: Naloxone* 0.4 MG/ML 1 ML VIAL IV PRN (13:29)
[2019-01-17] MEDS ORDERED: fentaNYL* 50 MCG/ML 2 ML VIAL (100 MCG VIAL) IV PRN (13:29)
[2019-01-17] MEDS ORDERED: Atropine 1MG/ML INJ* 1 ML VIAL ONE (14:39)
[2019-01-17 15:32] VITALS: BP 145/91
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
== END 2019-01-17 16:10 | disposition home or self-care (01) ==
LOC: OR 10:20
PROVIDERS: ATTEND Orthopaedic Surgery
DX: S43.015A Anterior dislocation of left humerus, initial encounter (principal); S46.012A Strain of muscle(s) and tendon(s) of the rotator cuff of left shoulder, initial encounter; S43.492A Other sprain of left shoulder joint, initial encounter; S43.432A Superior glenoid labrum lesion of left shoulder, initial encounter; S42.295A Other nondisplaced fracture of upper end of left humerus, initial encounter for closed fracture; M75.42 Impingement syndrome of left shoulder; M19.112 Post-traumatic osteoarthritis, left shoulder; Z72.0 Tobacco use; F41.8 Other specified anxiety disorders; V03.19XA Pedestrian with other conveyance injured in collision with car, pick-up truck or van in traffic accident, initial encounter; Y92.410 Unspecified street and highway as the place of occurrence of the external cause; G89.18 Other acute postprocedural pain
CPT/HCPCS: C1713; C1776; J0461; J0690; J1100; J2250; J2405; J2704; J2795; J3010

== ENCOUNTER 2021-09-06 06:11 | Inpatient (IN) ==
[2021-09-06 06:52] LABS: ABS Eosinophils 0.1 10^3/ul (0-0.6); ABS Lymphocytes 1.1 10^3/ul (1.0-4.8); ABS Monocytes 0.8 10^3/ul (0-0.8); ABS Neutrophils 4.7 10^3/ul (1.5-7.7); Eosinophil % 1.4 %; Hematocrit 37 % (42-52); Hemoglobin 12.2 g/dL (14.0-18.0); Lymphocyte % 17.1 %; Mean Corpuscular HGB Conc 33 g/dL (31-36); Mean Corpuscular Hemoglobin 30 pg (27-31); Mean Corpuscular Volume 90 fL (80-94); Mean Platelet Volume 10.1 fL (7.4-10.4); Platelet Count 149 10^3/uL (150-450); Red Blood Count 4.06 10^6 /uL (4.18-5.48); Red Cell Distribution Width 14 % (10-15); White Blood Count 6.7 10^3/uL (3.5-10.8)
[2021-09-06 07:06] LABS: INR 1.91 (0.86-1.15)
[2021-09-06 07:13] LABS: Troponin I 0.03 ng/mL (<0.03)
[2021-09-06 07:14] LABS: ALT 34 U/L (7-52); AST 46 U/L (13-39); Albumin/Globulin Ratio 1.3 (1-3); Alkaline Phosphatase 77 U/L (35-149); Anion Gap 6 mmol/L (2-11); Blood Urea Nitrogen 34 mg/dL (6-24); CO2 Carbon Dioxide 25 mmol/L (22-32); Calcium 8.3 mg/dL (8.6-10.3); Chloride 107 mmol/L (101-111); Globulin 2.4 g/dL (2-4); Glucose 131 mg/dL (70-100); Potassium 3.9 mmol/L (3.5-5.0); Sodium 138 mmol/L (135-145); Total Protein 5.4 g/dL (6.4-8.9)
[2021-09-06] MEDS ORDERED: Lactated Ringers 500 ml BAG 500 ML IV ONE (07:21)
[2021-09-06] MEDS ORDERED: Tetan/Diph/Pertus SYR(Tdap) 0.5 ML SYR(BOOSTRIX) use SYR contains LATEX IM ONE (08:40)
[2021-09-06] MEDS ORDERED: Metoprolol Tartrate 5 mg VIAL 5 ml VIAL (1 mg/ml) IV ONE (09:38)
[2021-09-06 10:15] LABS: Urine Benzodiazepine Screen None Detected (None Detect); Urine Cannabinoids Screen None Detected (None Detect); Urine Opiates Screen None Detected (None Detect)
[2021-09-06 10:20] LABS: Troponin I 0.03 ng/mL (<0.03)
[2021-09-06 12:19] LABS: Magnesium 1.9 mg/dL (1.9-2.7)
[2021-09-06] MEDS ORDERED: Albuterol HFA INHALER 8 gm MDI INH SCH (13:00)
[2021-09-06] MEDS ORDERED: Furosemide 20 mg/2 ml IV VIAL IV ONE (13:07)
[2021-09-06] MEDS ORDERED: Naloxone Nasal Spray 4 MG/0.1 ML NASAL.SPR INTRANASAL PRN (13:32)
[2021-09-06 13:45] LABS: Urine Appearance Clear; Urine Bilirubin Negative (Negative); Urine Blood Negative (Negative); Urine Color Yellow; Urine Glucose Negative (Negative); Urine Ketones Negative (Negative); Urine Nitrite Negative (Negative); Urine Protein 1+(30 mg/dL) (Negative); Urine Specific Gravity 1.028 (1.002-1.030); Urine Urobilinogen Positive (Negative)
[2021-09-06 13:50] LABS: Urine Bacteria Absent (Absent); Urine Red Blood Cell Absent (Absent); Urine White Blood Cell Absent (Absent)
[2021-09-06] MEDS: Albuterol HFA INHALER 8 gm MDI INH SCH ×4 (13:52→22:09)
[2021-09-06 13:58] LABS: Rapid COVID-19 Molecular Undetected (Undetected)
[2021-09-06 13:59] LABS: Troponin I 0.03 ng/mL (<0.03)
[2021-09-06] MEDS ORDERED: Magnesium Sulfate IV 1GM/100ML 1 GM/100 ML BAG IV ONE (20:41)
[2021-09-06] MEDS: Mometasone/Formoter 200/5 MDI INH SCH (20:46)
[2021-09-07] MEDS: Albuterol HFA INHALER 8 gm MDI INH SCH ×2 (03:32→08:26)
[2021-09-07 06:29] LABS: Calcium 8.5 mg/dL (8.6-10.3); Potassium 3.8 mmol/L (3.5-5.0); eGFR CKD-EPI 72.1 (>60)
[2021-09-07] MEDS ORDERED: Albuterol HFA INHALER 8 gm MDI INH PRN (08:26)
[2021-09-07] MEDS: Mometasone/Formoter 200/5 MDI INH SCH ×2 (08:27→19:54)
[2021-09-07] MEDS ORDERED: Midazolam 5 mg/5 ml VIAL 1 mg/ml 5 ml VIAL (5 mg) ONE (08:46)
[2021-09-07] MEDS ORDERED: Ketamine HCL 50 mg/ml 10 ml VIAL (500 MG) ONE (08:46)
[2021-09-07] MEDS ORDERED: Etomidate 40 mg/20 ml (2 MG/ML) 20 ml VIAL (40 mg) ONE (08:47)
[2021-09-07] MEDS: Aspirin EC 81 mg TAB.EC (enteric coated) PO SCH (13:41)
[2021-09-07] MEDS: Furosemide 40 mg/4 ml IV VIAL IV SCH (13:43)
[2021-09-07] MEDS ORDERED: Potassium Chloride LIQUID 20 MEQ/15 ML LIQUID PO ONE (14:47)
[2021-09-08 06:11] LABS: ABS Eosinophils 0.1 10^3/ul (0-0.6); ABS Lymphocytes 1.3 10^3/ul (1.0-4.8); ABS Monocytes 0.7 10^3/ul (0-0.8); ABS Neutrophils 5.4 10^3/ul (1.5-7.7); Hematocrit 39 % (42-52); Hemoglobin 12.7 g/dL (14.0-18.0); Lymphocyte % 17.5 %; Mean Corpuscular HGB Conc 32 g/dL (31-36); Mean Corpuscular Hemoglobin 30 pg (27-31); Mean Corpuscular Volume 92 fL (80-94); Mean Platelet Volume 10.1 fL (7.4-10.4); Platelet Count 151 10^3/uL (150-450); Red Blood Count 4.28 10^6 /uL (4.18-5.48); Red Cell Distribution Width 15 % (10-15); White Blood Count 7.4 10^3/uL (3.5-10.8)
[2021-09-08 06:27] LABS: Calcium 8.4 mg/dL (8.6-10.3); HDL Cholesterol 35.4 mg/dL; Potassium 4.2 mmol/L (3.5-5.0); eGFR CKD-EPI 77.6 (>60)
[2021-09-08] MEDS: Mometasone/Formoter 200/5 MDI INH SCH ×2 (07:16→20:18)
[2021-09-08] MEDS: Aspirin EC 81 mg TAB.EC (enteric coated) PO SCH (09:20)
[2021-09-08] MEDS: Furosemide 40 mg/4 ml IV VIAL IV SCH (09:20)
[2021-09-08] MEDS: Multivitamins/Minerals TAB PO SCH (14:34)
[2021-09-09 06:19] LABS: Calcium 8.8 mg/dL (8.6-10.3); Potassium 4.1 mmol/L (3.5-5.0)
[2021-09-09 08:08] LABS: Magnesium 1.9 mg/dL (1.9-2.7)
[2021-09-09] MEDS: Aspirin EC 81 mg TAB.EC (enteric coated) PO SCH (08:29)
[2021-09-09] MEDS: Multivitamins/Minerals TAB PO SCH (08:29)
[2021-09-09] MEDS: Mometasone/Formoter 200/5 MDI INH SCH (09:36)
[2021-09-09] MEDS ORDERED: Aminophylline 25 MG/ML VIAL ONE (09:38)
[2021-09-09] MEDS ORDERED: Regadenoson 0.4 MG/5 ML SYRINGE ONE (09:38)
[2021-09-09] MEDS ORDERED: Magnesium Sulfate 2 gm BAG 2 GM/50 ML BAG IVPB ONE (10:42)
[2021-09-09 11:50] VITALS: BP 119/87
== END 2021-09-09 14:10 | disposition home or self-care (01) | DRG 201 ==
LOC: ED 06:11 → EDHOLD 12:42 → MEDTELE 14:45
PROVIDERS: ADMIT Internal Medicine; ATTEND Internal Medicine